=== PATIENT | female | born 1985 | race Caucasian/White ===

== ENCOUNTER 2016-09-02 17:08 | Inpatient (IN) | payer MEDICAID ==
[2016-09-02 17:10] VITALS: BMI 34.3
--- NOTE | 2016-09-02 18:30 | ED PDOC ---
Arrival/HPI <ElidiaCaio Kyle - Last Filed: 09/02/16 18:42> <RAQUEL SONG - Last Filed: 09/02/16 18:44> <Rigo Alberto - Last Filed: 09/02/16 21:16> - General Chief Complaint: GI Problem Time Seen by Provider: 09/02/16 17:08 - History of Present Illness Narrative History of Present Illness (Text): 09/02/16 18:22 Mrs. 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 She reports the pain is constant, burning/pressure sensation that is rated a 6-7 /10 with no radiation. She indicates that standing, bearing down and passing harder stool causes increased pain. She does indicate there is blood with bowel movements that is bright and red. She has tried to treat her pain with preparation H with out relieve. She denies any weakness, dizziness, shortness of breath, chest pain, palpitations. She does report intermittent nausea since onset. She denies being on any anti-coagulation at this time. (RAQUEL SONG) Past Medical History <ElidiaCaio Kyle - Last Filed: 09/02/16 18:42> - Provider Review Nursing Documentation Reviewed: Yes - Infectious Disease Hx of Infectious Diseases: None - Past Medical History Past Medical History: No Previous - Pulmonary Hx Asthma: Yes - Hematological/Oncological Hx Anemia: Yes - Psychiatric Hx Depression: No Hx Emotional Abuse: No Hx Physical Abuse: No Hx Substance Use: No - Surgical History Hx Section: Yes (x2) Other[facility]Comment[facility] Gastric sleeve - Anesthesia Hx Anesthesia: Yes Hx Anesthesia Reactions: No Hx Malignant Hyperthermia: No - Suicidal Assessment Feels Threatened In Home Enviroment: No <RAQUEL SONG - Last Filed: 09/02/16 18:44> <Rigo Alberto - Last Filed: 09/02/16 21:16> - Patient History Narrative Patient History: DVT PE Asthma Anemia - Iron deficiency (RAQUEL SONG) Family/Social History <Caio Brenner - Last Filed: 09/02/16 18:42> - Physician Review Nursing Documentation Reviewed: Yes Smoking Status: Never Smoked Hx Alcohol Use: Yes Hx Substance Use: No Hx Substance Use Treatment: No <RAQUEL SONG - Last Filed: 09/02/16 18:44> Family/Social History: No Known Family HX <Florencio Albertomary carmen Short - Last Filed: 09/02/16 21:16> Narrative Family History (Free Text): 09/02/16 18:31 Mother: Brain tumors, Epilepsy, DM2 Uncle: Colon Ca (RAQUEL SONG) Allergies/Home Meds <Caio Brenner - Last Filed: 09/02/16 18:42> <LIATMARTINBECKA HALLRAQUEL - Last Filed: 09/02/16 18:44> <DollyRigo L - Last Filed: 09/02/16 21:16> Allergies/Adverse Reactions: Allergies No Known Allergies Allergy (Verified 04/10/14 20:07) Home Medications: Home Meds Medication Instructions Recorded Confirmed Albuterol HFA [Ventolin HFA 90 2 puff IH QID PRN 09/02/16 09/02/16 mcg/actuation (8 g)] Cetirizine HCl [Zyrtec] 1 tab PO DAILY 09/02/16 09/02/16 Fluticasone/Salmeterol 500/50 1 puff IH DAILY 09/02/16 09/02/16 [Advair Diskus 500/50] Review of Systems - Review of Systems Constitutional: absent: Fatigue, Weight Change, Fevers Respiratory: absent: SOB, Cough Cardiovascular: absent: Chest Pain, Palpitations Gastrointestinal: Nausea. absent: Abdominal Pain, Stool Changes, Vomiting, Hematochezia Genitourinary Female: absent: Dysuria, Frequency Musculoskeletal: absent: Back Pain Neurological: absent: Headache, Dizziness Hemo/Lymphatic: absent: Easy Bleeding Psychiatric: absent: Anxiety, Depression <DUNCANRAQUEL - Last Filed: 09/02/16 18:44> Physical Exam Vital Signs Reviewed: Yes Temperature: Afebrile Blood Pressure: Normal Pulse: Tachycardic Respiratory Rate: Normal Appearance: Positive for: Well-Appearing Pain Distress: Moderate Mental Status: Positive for: Alert and Oriented X 3 - Systems Exam Head: Present: Atraumatic, Normocephalic Pupils: Present: PERRL Extroacular Muscles: Present: EOMI Mouth: Present: Moist Mucous Membranes Neck: Present: Normal Range of Motion Respiratory/Chest: Present: Clear to Auscultation, Good Air Exchange. No: Respiratory Distress, Accessory Muscle Use Cardiovascular: Present: Regular Rate and Rhythm, Normal S1, S2. No: Murmurs Abdomen: Present: Normal Bowel Sounds. No: Tenderness, Distention Rectal: Present: Rectal Tenderness, Normal Rectal Tone, Other (indurated mass at 12 o'clock, limited skin changes, ). No: Occult Blood, Gross Blood, Hemorrhoids, Fissures Upper Extremity: Present: Normal Inspection, NORMAL PULSES. No: Edema Lower Extremity: Present: Normal Inspection, NORMAL PULSES. No: CALF TENDERNESS Neurological: Present: GCS=15, CN II-XII Intact, Speech Normal Skin: Present: Warm, Dry Psychiatric: Present: Alert, Oriented x 3 <RAQUEL SONG - Last Filed: 09/02/16 18:44> Medical Decision Making <Caio Brenner - Last Filed: 09/02/16 18:42> <RAQUEL SONG - Last Filed: 09/02/16 18:44> <Rigo Alberto - Last Filed: 09/02/16 21:16> ED Course and Treatment: 09/02/16 18:44 Impression: Mrs. Trinidad is a 31 year old female who presents with rectal pain for the past week. Differential Diagnosis included but are not limited to: - perirectal abscess Plan: - Labs: CBC, CMP, PT, PTT, Type and Screen - Imaging: CT abdomen and pelvis with IV contrast - Surgical team consulted for I & D -- Reassess and disposition Progress Notes: - Surgical team examined the patient and plan for I&D in the morning (RAQUEL SONG) - Medication Orders Current Medication Orders: Sodium Chloride (Sodium Chloride 0.9%) 1,000 mls @ 125 mls/hr IV .Q8H [facility] Last Admin: 09/02/16 19:17 Dose: 125 mls/hr Ciprofloxacin (Cipro 400mg/200ml Dsw) 400 mg in 200 mls @ 133.3 mls/hr IVPB Q12 LAXMI PRN Reason: Protocol Stop: 09/03/16 11:31 Metronidazole (Flagyl) 500 mg in 100 mls @ 100 mls/hr IVPB Q8 LAXMI PRN Reason: Protocol Ketorolac Tromethamine (Toradol) 30 mg IVP Q6H PRN PRN Reason: Pain, moderate (4-7) Stop: 09/05/16 18:46 Last Admin: 09/02/16 19:26 Dose: 30 mg Re-Assess: ALEK Pain Assessment Document 09/02/16 20:26 OCS (Rec: 09/02/16 20:28 OCS [id number]) Pain Reassessment Is this a pain reassessment? Yes Sleep Is patient sleeping during reassessment? No Presence of Pain Presence of Pain No ED OBSERVATION Date of observation admission: 09/02/16 Time of observation admission: 17:53 <Caio Brenner - Last Filed: 09/02/16 18:42> <RAQUEL SONG - Last Filed: 09/02/16 18:44> <Rigo Alberto - Last Filed: 09/02/16 21:16> - Observation admission statement Patient is being placed in observation because:: perirectal abscess (Caio Brenner) - Goals of Observation Goals of observation are:: CT scan (Caio Brenner) - Progress Note Progress Note: [address] to evaluate for further involvement/fistula. 1830 residential mortgage underwriter at bedside, states likely OR tomorrow AM. Recommends admission to medicine. 1843 Pending labs, CT. When resulted, will require call to hospitalist service for admission. Will sign out to ER night team at change of shift. (Caio Brenner) 09/02/16 19:00 Patient endorsed to me by Dr. Brenner. Pending abdomen and pelvis CT, labs and disposition. Patient with rectal abscess. Evaluated by surgical technician, plan to admit to hospitalist. 09/02/16 20:54 Patient resting comfortably, in no acute distress. Pending CT. Report Date: 09/02/16 20:56 Dictated and Authenticated by: Ana Luisa Ambrose MD EXAM: CT Abdomen and Pelvis With Intravenous Contrast IMPRESSION: Left perirectal abscess; free fluid in the pelvis, physiologic versus recent cyst rupture; gastric sleeve 09/02/16 21:[address] Mantilla, medical assistant ob gyn, who will take the case. Case discussed with Dr. Li who will place on his service. I discussed the case with the surgical technician who states NPO past midnight and they will do a procedure in the morning. (Rigo Alberto) Disposition/Present on Arrival - Disposition Disposition Time: 17:53 <Caio Brenner - Last Filed: 09/02/16 18:42> - Present on Arrival Any Indicators Present on Arrival: Yes History of DVT/PE: Yes History of Uncontrolled Diabetes: No Urinary Catheter: No History of Decub. Ulcer: No History Surgical Site Infection Following: None <RAQUEL SONG - Last Filed: 09/02/16 18:44> - Present on Arrival Any Indicators Present on Arrival: No - Disposition Have Diagnosis and Disposition been Completed?: Yes Patient Plan: Observation <Rigo Alberto - Last Filed: 09/02/16 21:16> - Disposition Diagnosis: Rectal abscess Disposition: HOSPITALIZED Condition: FAIR
[2016-09-02 18:48] LABS: ALB/GLOB RATIO 1.4 (1.1-1.8); ALBUMIN 4.6 g/dL (3.0-4.8); ALT/SGPT 23 U/L (7-56); AST/SGOT 23 U/L (15-39); BLOOD UREA NITROGEN 11 mg/dL (7-21); CALCIUM 9.5 mg/dL (8.4-10.5); GFR AFRICAN-AMERICAN > 60; GFR NON-AFRICAN AMERICAN > 60
[2016-09-02 18:55] LABS: BASO # 0.03 K/mm3 (0.0-2.0); BASO % 0.3 % (0.0-3.0); EOS # 0.2 (0.0-0.7); GRAN # 7.22 (1.4-6.5); GRAN % 71.7 % (50.0-68.0); HEMOGLOBIN 12.9 gm/dL (12.0-16.0); INR 1.03 (0.93-1.08); LYMPH % 20.1 % (22.0-35.0); MEAN CELL VOLUME 82.6 fL (80.0-105.0); MEAN CORPUSCULAR HEMOGLOBIN 27.7 pg (25.0-35.0); MEAN CORPUSCULAR HGB CONC 33.6 g/dl (31.0-37.0); MEAN PLATELET VOLUME 10.8 fl (7.0-11.0); MONO # 0.6 (0.1-0.6); MONO % 5.9 % (1.0-6.0); PARTIAL THROMBOPLASTIN TIME 26.2 Seconds (23.7-30.8); PLATELET COUNT 280 10^3/uL (120.0-450.0); PROTHROMBIN TIME 11.1 Seconds (9.9-11.8); RBC 4.65 10^6/uL (3.5-6.1); WHITE BLOOD COUNT 10.1 10^3/ul (4.5-11.0)
--- NOTE | 2016-09-02 19:08 | CP.PCM.CON ---
History of Present Illness - History of Present Illness History of Present Illness: General Surgery - Dr. Guillen 31 yo F w/ hx of asthma, anemia, gastric sleeve, DVT/PE s/p IVC filter, who presents w/ ever-rectal pain x1 week. Pt states that the pain began approx. 1 week ago, she describes it as a burning pain located in the ever-rectal region, non-radiating, 7/10 at worst. She noticed it most when having a bowel movement or when sitting down. Pt states she also noticed a small tender bump in the region of pain, no drainage. She admits to mild nausea and hematochezia. She denies any Fevers, Chills, SOB/Chest pain, Abdominal pain, Diarrhea, Constipation, Dysuria, Hematuria. PMH: Asthma, Anemia, DVT/PE (2007) PSH: Gastric Sleeve (2013), IVC Filter (~2007), Meds: Asthma meds, B12, Iron NKDA No smoking/alcohol/drug use Pt was seen in the ED. Vitals are stable and WNL. Labs and CT pending. Review of Systems - Review of Systems All systems: reviewed and no additional remarkable complaints except (as per HPI ) Past Patient History - Infectious Disease Hx of Infectious Diseases: None - Past Social History Smoking Status: Never Smoked - PULMONARY Hx Asthma: Yes - HEMATOLOGICAL/ONCOLOGICAL Hx Anemia: Yes - PSYCHIATRIC Hx Depression: No Hx Emotional Abuse: No Hx Physical Abuse: No Hx Substance Use: No - SURGICAL HISTORY Hx Section: Yes (x2) Other[facility]Comment: [facility]. Gastric sleeve - ANESTHESIA Hx Anesthesia: Yes Hx Anesthesia Reactions: No Hx Malignant Hyperthermia: No Meds Allergies/Adverse Reactions: Allergies Allergy/AdvReac Type Severity Reaction Status Date / Time No Known Allergies Allergy Verified 04/10/14 20:07 - Medications Medications: Current Medications Sodium Chloride (Sodium Chloride 0.9%) 1,000 mls @ 125 mls/hr IV .Q8H LAXMI Ketorolac Tromethamine (Toradol) 30 mg IVP Q6H PRN PRN Reason: Pain, moderate (4-7) Stop: 09/05/16 18:46 Physical Exam - Constitutional Appears: No Acute Distress - Head Exam Head Exam: ATRAUMATIC, NORMAL INSPECTION, NORMOCEPHALIC - Eye Exam Eye Exam: EOMI, Normal appearance, PERRL Pupil Exam: NORMAL ACCOMODATION - ENT Exam ENT Exam: Mucous Membranes Moist - Respiratory Exam Respiratory Exam: NORMAL BREATHING PATTERN. absent: Respiratory Distress - Cardiovascular Exam Cardiovascular Exam: REGULAR RHYTHM - GI/Abdominal Exam GI & Abdominal Exam: Soft. absent: Distended, Tenderness - Rectal Exam Additional comments: Perianal abscess at the 12-o'clock position, erythema, mild induration and fluctuance, very tender to touch, no drainage, no hemorrhoids - Extremities Exam Extremities exam: Positive for: normal inspection. Negative for: pedal edema, tenderness - Neurological Exam Neurological exam: Alert, Oriented x3 - Psychiatric Exam Psychiatric exam: Normal Affect, Normal Mood - Skin Skin Exam: Dry, Intact Results - Vital Signs Recent Vital Signs: Last Vital Signs Temp 98.1 F 09/02/16 17:12 Pulse 109 H 09/02/16 17:12 Resp 18 09/02/16 17:12 BP 127/67 09/02/16 17:12 Pulse Ox 98 09/02/16 17:12 - Labs Result Diagrams: 09/02/16 18:25 09/02/16 18:25 Labs: Laboratory Results - last 24 hr 09/02/16 09/02/16 09/02/16 18:25 18:25 18:25 WBC 10.1 RBC 4.65 Hgb 12.9 Hct 38.4 MCV 82.6 MCH 27.7 MCHC 33.6 RDW 12.0 Plt Count 280 MPV 10.8 Gran % 71.7 H Lymph % (Auto) 20.1 L [place] % (Auto) 5.9 Eos % (Auto) 2.0 Baso % (Auto) 0.3 Gran # 7.22 H Lymph # 2.0 [place] # 0.6 Eos # 0.2 Baso # 0.03 PT 11.1 INR 1.03 APTT 26.2 Sodium 137 Potassium 4.1 Chloride 103 Carbon Dioxide 24 Anion Gap 14 BUN 11 Creatinine 0.7 Est GFR ( Amer) > 60 Est GFR (Non-Af Amer) > 60 Random Glucose 89 Calcium 9.5 Total Bilirubin 0.9 AST 23 ALT 23 Alkaline Phosphatase 49 Total Protein 8.0 Albumin 4.6 Globulin 3.4 Albumin/Globulin Ratio 1.4 BBK History Checked 09/02/16 18:30 WBC RBC Hgb Hct MCV MCH MCHC RDW Plt Count MPV Gran % Lymph % (Auto) [place] % (Auto) Eos % (Auto) Baso % (Auto) Gran # Lymph # [place] # Eos # Baso # PT INR APTT Sodium Potassium Chloride Carbon Dioxide Anion Gap BUN Creatinine Est GFR ( Amer) Est GFR (Non-Af Amer) Random Glucose Calcium Total Bilirubin AST ALT Alkaline Phosphatase Total Protein Albumin Globulin Albumin/Globulin Ratio BBK History Checked Patient has bt Assessment & Plan - Assessment and Plan (Free Text) Assessment: 31 yo F w/ perianal abscess -Admit to hospital -NPO/IVF -Pain control prn -IV Abx -F/U CT abd/pelvis -I&D in OR tomorrow (09/03) DW Dr Wilmer Barrera PGY3
[2016-09-02] MEDS: Sodium Chloride 0.9% 1,000 ML IV SCH (19:17)
--- NOTE | 2016-09-02 19:25 | ED PDOC ---
Physical Exam Vital Signs Temp Pulse Resp BP Pulse Ox 09/02/16 17:12 98.1 F 109 H 18 127/67 98 Medical Decision Making - Medication Orders Current Medication Orders: Sodium Chloride (Sodium Chloride 0.9%) 1,000 mls @ 125 mls/hr IV .Q8H LAXMI Last Admin: 09/02/16 19:17 Dose: 125 mls/hr Ciprofloxacin (Cipro 400mg/200ml Dsw) 400 mg in 200 mls @ 133.3 mls/hr IVPB Q12 LAXMI PRN Reason: Protocol Stop: 09/03/16 11:31 Metronidazole (Flagyl) 500 mg in 100 mls @ 100 mls/hr IVPB Q8 LAXMI PRN Reason: Protocol Ketorolac Tromethamine (Toradol) 30 mg IVP Q6H PRN PRN Reason: Pain, moderate (4-7) Stop: 09/05/16 18:46 Disposition/Present on Arrival - Present on Arrival Any Indicators Present on Arrival: Yes History of DVT/PE: Yes History of Uncontrolled Diabetes: No Urinary Catheter: No History of Decub. Ulcer: No History Surgical Site Infection Following: None - Disposition
[2016-09-02] MEDS ORDERED: Iohexol 350 MG/100 ML VIAL ONE (19:34)
[2016-09-02 20:06] VITALS: O2SAT 100
--- NOTE | 2016-09-02 20:56 | CT ---
EXAM: CT Abdomen and Pelvis With Intravenous Contrast CLINICAL HISTORY: 31 years old, female; Pain; Abdominal pain; Additional info: Ana-rectal pain TECHNIQUE: Axial computed tomography images of the abdomen and pelvis with intravenous contrast. This CT exam was performed using one or more of the following dose reduction techniques: automated exposure control, adjustment of the mA and/or kV according to patient size, and/or use of iterative reconstruction technique. Coronal and sagittal reformatted images were created and reviewed. CONTRAST: 100 mL of [id number] administered intravenously. EXAM DATE/TIME: 09/02/2016 5:53 PM COMPARISON: There are no prior studies for comparison. FINDINGS: Lower thorax: Heart size is normal. There is minimal scarring at the lung bases ABDOMEN: Liver: unremarkable Gallbladder and bile ducts: unremarkable Pancreas: unremarkable Spleen: unremarkable Adrenals: unremarkable Kidneys and ureters: unremarkable Stomach and bowel: There are postsurgical changes of gastric sleeve. Rotation is normal. Small bowel is mildly distended with air and fluid. There is no obstruction. Terminal ileum is unremarkable. Visualized portion of the appendix is unremarkable.Colon is incompletely distended which limits evaluation. There is inflammation and edema in perirectal soft tissues. There is a 20 x 7.8 x 9.7 mm left perirectal abscess. Appendix: See stomach and bowel PELVIS: Bladder: unremarkable Reproductive: Uterus and left adnexa are unremarkable. There is prominence of the right adnexa with a corpus luteum. ABDOMEN and PELVIS: Intraperitoneal space: There is free fluid in the cul-de-sac. There is no free air Bones/joints: There are degenerative changes in the osseus structures. Soft tissues: There is a small fat containing umbilical hernia. Vasculature: Aorta is unremarkable. There is an IVC filter. Lymph nodes: There is no pathologic adenopathy. IMPRESSION: Left perirectal abscess; free fluid in the pelvis, physiologic versus recent cyst rupture; gastric sleeve Additional findings as described above.
--- NOTE | 2016-09-02 21:51 | CP.PCM.HP ---
<JEREMIE GOYAL - Last Filed: 09/03/16 00:11> History of Present Illness - History of Present Illness History of Present Illness: 31 year old female pmh asthma, DVT, PE, Anemia presents to [facility] on 09/02/2016 with complaints of a pressure sensation in her buttocks as well as bleeding s/p bowel movements. This is the first time patient has experienced this. Patient states that this has been going for a week with severity of pain worsening with time. She notes that aside from bleeding with wiping, in the past two days she has also experienced purulent drainage. Initially thinking she had hemorrhoids, patient was using preparation H to no avail. Patient describes the pain as both sharp and dull waxing and waning. She states that the pain is about a 7/10. The pain does not radiate, however is exacerbated with standing and valsalva maneuvers. Patient states that to relieve pain she lays down. She admits to recent bouts of nausea and loss of appetite. Patient denies fevers, chills, vomiting, chest pain, history of GI disorders, sexual promiscuity. PMD: Dr. Gregorio PMH: Asthma, DVT, PE, Anemia (Iron deficiency and B12) PSH: 2 C-sections, IVC filter placement SH: denies tobacco use, admits to occasional alcohol consumption, denies illicit drug use FH: Mother: brain tumors and DM II, 2 maternal aunts: breast ca, maternal uncle : colon cancer Allergies: NKDA Review of Systems Constitutional: pt denies fever, chills, generalized weakness MSK: pt denies muscle stiffness, joint pain, extremity cramping Cardio: pt denies sob, heart murmur; chest pain Pulm: pt denies cough, shortness of breath GI: pt denies abdominal pain, constipation, melena, vomiting, diarrhea, admits to nausea, admits to loss of appetite : pt denies burning on urination, urinary frequency, hematuria, urinary urgency Derm: pt admits to drainage and bleeding from anal region Neuro: pt denies paresis, paresthesia, dizziness, cross, numbness, tingling Endo: pt denies intolerance to heat/cold, diaphoresis, night sweats, polydipsia Physical Exam Constitutional: obese female, a&o x 4, nad Head and Neck: neck supple, no jvd, trachea midline, carotid midline, no cervical/head mass Eyes: angeli, nonicteric sclera, eom intact ENT: auditory acuity grossly intact, throat not congested, no nasal deformity Cardio: RRR, S1 and S2 present, no gallops, no murmurs Pulm: CTAB, no accessory muscle use, equal nml breath sounds bilaterally Abd: s/nt/nd, nbs x 4 q, no palpable masses Derm: +perirectal abscess,- current drainage Extr: no edema, no cyanosis, no calf tenderness, no lesions, no varicosities Present on Admission - Present on Admission Any Indicators Present on Admission: Yes History of DVT/PE: Yes History of Uncontrolled Diabetes: No Past Patient History - Infectious Disease Hx of Infectious Diseases: None - Past Social History Smoking Status: Never Smoked - PULMONARY Hx Asthma: Yes - HEMATOLOGICAL/ONCOLOGICAL Hx Anemia: Yes - PSYCHIATRIC Hx Depression: No Hx Emotional Abuse: No Hx Physical Abuse: No Hx Substance Use: No - SURGICAL HISTORY Hx Section: Yes (x2) Other[facility]Comment[facility] Gastric sleeve - ANESTHESIA Hx Anesthesia: Yes Hx Anesthesia Reactions: No Hx Malignant Hyperthermia: No Meds Allergies/Adverse Reactions: Allergies Allergy/AdvReac Type Severity Reaction Status Date / Time No Known Allergies Allergy Verified 04/10/14 20:07 Results - Vital Signs Recent Vital Signs: Last Vital Signs Temp 98.1 F 09/02/16 17:12 Pulse 85 09/02/16 19:58 Resp 18 09/02/16 19:58 BP 135/81 09/02/16 19:58 Pulse Ox 100 09/02/16 19:58 - Labs Result Diagrams: 09/02/16 18:25 09/02/16 18:25 Labs: Laboratory Results - last 24 hr 09/02/16 09/02/16 09/02/16 18:25 18:25 18:25 WBC 10.1 RBC 4.65 Hgb 12.9 Hct 38.4 MCV 82.6 MCH 27.7 MCHC 33.6 RDW 12.0 Plt Count 280 MPV 10.8 Gran % 71.7 H Lymph % (Auto) 20.1 L [place] % (Auto) 5.9 Eos % (Auto) 2.0 Baso % (Auto) 0.3 Gran # 7.22 H Lymph # 2.0 [place] # 0.6 Eos # 0.2 Baso # 0.03 PT 11.1 INR 1.03 APTT 26.2 Sodium 137 Potassium 4.1 Chloride 103 Carbon Dioxide 24 Anion Gap 14 BUN 11 Creatinine 0.7 Est GFR ( Amer) > 60 Est GFR (Non-Af Amer) > 60 Random Glucose 89 Calcium 9.5 Total Bilirubin 0.9 AST 23 ALT 23 Alkaline Phosphatase 49 Total Protein 8.0 Albumin 4.6 Globulin 3.4 Albumin/Globulin Ratio 1.4 Blood Type Antibody Screen BBK History Checked 09/02/16 18:30 WBC RBC Hgb Hct MCV MCH MCHC RDW Plt Count MPV Gran % Lymph % (Auto) [place] % (Auto) Eos % (Auto) Baso % (Auto) Gran # Lymph # [place] # Eos # Baso # PT INR APTT Sodium Potassium Chloride Carbon Dioxide Anion Gap BUN Creatinine Est GFR ( Amer) Est GFR (Non-Af Amer) Random Glucose Calcium Total Bilirubin AST ALT Alkaline Phosphatase Total Protein Albumin Globulin Albumin/Globulin Ratio Blood Type A POSITIVE Antibody Screen Negative BBK History Checked Patient has bt Assessment & Plan - Assessment and Plan (Free Text) Assessment: 31 year old female PMH Asthma, DVT/PE s/p IVC filter, Anemia presented to [facility] on 09/02/2016 with an ischiorectal abscess for one week's duration. Plan: 1.Perirectal abscess -CT abdomen/pelvis shows perirectal abscess -Surgery will I&D tomorrow -Patient will remain NPO/IVF -Continue with Abx: cipro and metronidazole -Continue with toradol for pain coverage and percocet for breakthrough pain -Continue with Zofran 4 mg for nausea 2.Asthma -Duonebs PRN -DVT/GI prophylaxis- Lovenox 40 gm qD/Pepcid 20 mg qD <Guillermo,Tyrell Q - Last Filed: 09/03/16 02:00> Results - Vital Signs Recent Vital Signs: Last Vital Signs Temp 98.1 F 09/03/16 00:15 Pulse 85 09/03/16 00:15 Resp 20 09/03/16 00:15 BP 110/63 09/03/16 00:15 Pulse Ox 100 09/02/16 22:53 - Labs Result Diagrams: 09/02/16 18:25 09/02/16 18:25 Labs: Laboratory Results - last 24 hr 09/02/16 09/02/1609/02/17 18:25 18:25 18:25 WBC 10.1 RBC 4.65 Hgb 12.9 Hct 38.4 MCV 82.6 MCH 27.7 MCHC 33.6 RDW 12.0 Plt Count 280 MPV 10.8 Gran % 71.7 H Lymph % (Auto) 20.1 L [place] % (Auto) 5.9 Eos % (Auto) 2.0 Baso % (Auto) 0.3 Gran # 7.22 H Lymph # 2.0 [place] # 0.6 Eos # 0.2 Baso # 0.03 PT 11.1 INR 1.03 APTT 26.2 Sodium 137 Potassium 4.1 Chloride 103 Carbon Dioxide 24 Anion Gap 14 BUN 11 Creatinine 0.7 Est GFR ( Amer) > 60 Est GFR (Non-Af Amer) > 60 Random Glucose 89 Calcium 9.5 Total Bilirubin 0.9 AST 23 ALT 23 Alkaline Phosphatase 49 Total Protein 8.0 Albumin 4.6 Globulin 3.4 Albumin/Globulin Ratio 1.4 Blood Type Antibody Screen BBK History Checked 09/02/16 18:30 WBC RBC Hgb Hct MCV MCH MCHC RDW Plt Count MPV Gran % Lymph % (Auto) [place] % (Auto) Eos % (Auto) Baso % (Auto) Gran # Lymph # [place] # Eos # Baso # PT INR APTT Sodium Potassium Chloride Carbon Dioxide Anion Gap BUN Creatinine Est GFR ( Amer) Est GFR (Non-Af Amer) Random Glucose Calcium Total Bilirubin AST ALT Alkaline Phosphatase Total Protein Albumin Globulin Albumin/Globulin Ratio Blood Type A POSITIVE Antibody Screen Negative BBK History Checked Patient has bt Attending/Attestation - Attestation I have personally seen and examined this patient.: Yes I have fully participated in the care of the patient.: Yes I have reviewed all pertinent clinical information: Yes Notes (Text): 09/03/16 01:58 I agree with the above note by Dr. Goyal with the addition of the following: Patient has had a history of DVT/PE in 2007 and was provoked secondary to oral contraceptives. She was on anticoagulation for a prescribed period, had an IVC filter placed and subsequently taken off of anticoagulation. She will be kept on pharmacologic VTE prophylaxis while she remains in the hospital.
[2016-09-02] MEDS: metroNIDAZOLE IV 500 mg/100 ml 500 MG/100 ML BAG IVPB SCH (22:54)
[2016-09-02] MEDS: Oxycodone/Acetaminophen 5/325 mg Tab PO PRN (23:01)
[2016-09-02] MEDS: Ciprofloxacin 400mg/200ml D5W 400 MG/200 ML BAG IVPB SCH (23:48)
[2016-09-03] MEDS ORDERED: Albuterol-Ipratrop 3 mg / 0.5 (3 ml) UD IH PRN (00:04)
[2016-09-03] MEDS ORDERED: Pneumococcal 23-Valent Vaccine IM ONE (00:20)
[2016-09-03] MEDS: Enoxaparin 40 mg Syringe SC SCH ×2 (00:38→09:31)
[2016-09-03] MEDS: metroNIDAZOLE IV 500 mg/100 ml 500 MG/100 ML BAG IVPB SCH ×3 (05:55→22:30)
--- NOTE | 2016-09-03 09:22 | CARD ---
APPROVED REPORT EKG Measurement Heart [id number] <Conclusion> Normal sinus rhythm with sinus arrhythmia Normal ECG
[2016-09-03] MEDS: Ciprofloxacin 400mg/200ml D5W 400 MG/200 ML BAG IVPB SCH (09:31)
[2016-09-03] MEDS ORDERED: Bupivacaine 0.5% Inj(30mL) ONE (12:49)
[2016-09-03] MEDS ORDERED: Lidocaine 1% Inj (20ml) ONE (12:49)
[2016-09-03] MEDS ORDERED: Midazolam 2 MG/2 ML VIAL ONE (12:58)
[2016-09-03] MEDS ORDERED: Lidocaine 2% Inj (20ml) ONE (13:02)
[2016-09-03] MEDS ORDERED: Propofol 10 mg/ml Inj (20 ML) ONE (13:02)
[2016-09-03] MEDS ORDERED: ePHEDrine 50 mg/ml Inj ONE (13:12)
--- NOTE | 2016-09-03 13:41 | PCM.SURG1 ---
Surgeon's Initial Post Op Note - Surgeon's Notes Surgeon: Dr. Guillen Mesh Cutter: Dr. Dodson PGY2, Dr. Stanley PGY1 Type of Anesthesia: General Mask, Local Pre-Operative Diagnosis: Perianal abscess Operative Findings: perianal abcscess, fistula at 6o'clock Post-Operative Diagnosis: same Operation Performed: Incsion and Drainage of perianal abcsess and iodiform packing. anoscopy Specimen/Specimens Removed: none Estimated Blood Loss: EBL {In ML}: 3 Post-Op Condition: Good Date of Surgery/Procedure: 09/03/16 Time of Surgery/Procedure: 13:00
[2016-09-03] MEDS ORDERED: Lactated Ringer's 1,000 ML IV SCH (13:51)
[2016-09-03] MEDS ORDERED: HYDROmorphone 0.5 mg/0.5 ml ISec IVP PRN (13:51)
[2016-09-03] MEDS ORDERED: HYDROmorphone 0.5 mg/0.5 ml ISec ONE (14:03)
[2016-09-03] MEDS ORDERED: HYDROmorphone 0.5 mg/0.5 ml ISec IVP ONE (14:06)
[2016-09-03] MEDS: Oxycodone/Acetaminophen 5/325 mg Tab PO PRN (15:50)
[2016-09-03] MEDS: Vancomycin 1gm in NS 250ml 1 GM/250 ML BAG IVPB SCH (17:19)
[2016-09-03] MEDS: Sodium Chloride 0.9% 1,000 ML IV SCH (21:00)
[2016-09-04] MEDS: HYDROmorphone 0.5 mg/0.5 ml ISec IVP PRN ×2 (00:30→05:57)
[2016-09-04] MEDS: Vancomycin 1gm in NS 250ml 1 GM/250 ML BAG IVPB SCH (03:42)
[2016-09-04] MEDS: metroNIDAZOLE IV 500 mg/100 ml 500 MG/100 ML BAG IVPB SCH (05:57)
[2016-09-04] MEDS ORDERED: Oxycodone/Acetaminophen 5/325 mg Tab PO PRN (07:38)
[2016-09-04 07:45] LABS: BASO # 0.01 K/mm3 (0.0-2.0); BASO % 0.1 % (0.0-3.0); EOS % 0.2 % (1.5-5.0); GRAN # 11.07 (1.4-6.5); GRAN % 91.9 % (50.0-68.0); HEMOGLOBIN 10.8 gm/dL (12.0-16.0); LYMPH # 0.4 (1.2-3.4); LYMPH % 3.2 % (22.0-35.0); MEAN CELL VOLUME 83.5 fL (80.0-105.0); MEAN CORPUSCULAR HEMOGLOBIN 27.8 pg (25.0-35.0); MEAN CORPUSCULAR HGB CONC 33.2 g/dl (31.0-37.0); MEAN PLATELET VOLUME 10.6 fl (7.0-11.0); MONO # 0.6 (0.1-0.6); MONO % 4.6 % (1.0-6.0); PLATELET COUNT 156 10^3/uL (120.0-450.0); RBC 3.89 10^6/uL (3.5-6.1); RED CELL DISTRIBUTION WIDTH 12.1 % (11.5-14.5); WHITE BLOOD COUNT 12.1 10^3/ul (4.5-11.0)
[2016-09-04 07:56] LABS: ALB/GLOB RATIO 1.1 (1.1-1.8); ALBUMIN 3.3 g/dL (3.0-4.8); ALT/SGPT 20 U/L (7-56); AST/SGOT 23 U/L (15-39); BLOOD UREA NITROGEN 6 mg/dL (7-21); CALCIUM 7.7 mg/dL (8.4-10.5); GFR AFRICAN-AMERICAN > 60; GFR NON-AFRICAN AMERICAN > 60
--- NOTE | 2016-09-04 10:33 | CP.PCM.PN ---
Subjective - Date & Time of Evaluation Date of Evaluation: 09/04/16 Time of Evaluation: 10:30 - Subjective Subjective: PT S&E at bedsides. wound culture taken. packing removed. Dressing changed. Patient admits to nausea with pain medication. Patient is tolerating her diet. Patient denies F/c, N/V, C/D Objective - Vital Signs/Intake and Output Vital Signs (last 24 hours): Temp Pulse Resp BP Pulse Ox 99.8 F H 93 H 20 110/63 100 09/04/16 07:53 09/04/16 07:53 09/04/16 07:53 09/04/16 07:53 09/04/16 07:53 Intake and Output: 09/04/16 09/04/16 06:59 18:59 Intake Total 780 240 Output Total 0 Balance 780 240 - Medications Medications: Current Medications Albuterol/Ipratropium (Duoneb 3 Mg/0.5 Mg (3 Ml) Ud) 3 ml IH Q8H PRN PRN Reason: Wheezing Docusate Sodium (Colace) 100 mg PO BID LAXMI Last Admin: 09/04/16 09:34 Dose: 100 mg Metronidazole (Flagyl) 500 mg in 100 mls @ 100 mls/hr IVPB Q8 LAXMI PRN Reason: Protocol Last Admin: 09/04/16 05:57 Dose: 100 mls/hr Vancomycin HCl (Vancomycin 1gm) 1 gm in 250 mls @ 167 mls/hr IVPB Q12H LAXMI PRN Reason: Protocol Last Admin: 09/04/16 03:42 Dose: 167 mls/hr Ketorolac Tromethamine (Toradol) 30 mg IVP Q6H PRN PRN Reason: Pain, moderate (4-7) Stop: 09/04/16 18:46 Last Admin: 09/04/16 08:39 Dose: 30 mg Ondansetron HCl (Zofran Inj) 4 mg IVP Q4H PRN PRN Reason: Nausea/Vomiting Last Admin: 09/03/16 20:59 Dose: 4 mg Oxycodone/Acetaminophen (Percocet 5/325 Mg Tab) 1 tab PO Q4 PRN PRN Reason: Pain, severe (8-10) Stop: 09/07/16 08:01 - Labs Labs: 09/04/16 07:00 09/04/16 07:00 PT 11.1 Seconds (9.9-11.8) 09/02/16 18:25 INR 1.03 (0.93-1.08) 09/02/16 18:25 APTT 26.2 Seconds (23.7-30.8) 09/02/16 18:25 - Constitutional Appears: Well - Head Exam Head Exam: NORMAL INSPECTION - Eye Exam Eye Exam: EOMI, Normal appearance - ENT Exam ENT Exam: Mucous Membranes Moist - Neck Exam Neck Exam: Full ROM, Normal Inspection - Cardiovascular Exam Cardiovascular Exam: REGULAR RHYTHM - GI/Abdominal Exam GI & Abdominal Exam: Soft, Tenderness, Normal Bowel Sounds. absent: Distended, Firm, Guarding, Rigid - Neurological Exam Neurological Exam: Alert, Awake, Normal Gait, Oriented x3 Assessment and Plan - Assessment and Plan (Free Text) Assessment: 31 F perianal abscess s/p I&D POD #1 Plan: Patient is stable, discharge today with instructions to continue sitz baths f/u one with Dr. Guillen c/w abx f/u wound cx
[2016-09-04 11:53] VITALS: BP 110/63; PULSE 93; RESP 20; TEMP 99.8
--- NOTE | 2016-09-04 23:09 | CP.PCM.DIS ---
Provider - Provider Date of Admission: 09/03/16 13:54 Attending physician: Darcy Stewart MD Primary care physician: Mar Gregorio DO Consults: Surgery: Dr. Guillen Time Spent in preparation of Discharge (in minutes): 51 Hospital Course - Lab Results Lab Results: Micro Results 09/04/16 08:22 Abscess - Perianal Gram Stain - Final Most Recent Lab Values WBC 12.1 10^3/ul (4.5-11.0) H 09/04/16 07:00 RBC 3.89 10^6/uL (3.5-6.1) 09/04/16 07:00 Hgb 10.8 gm/dL (12.0-16.0) L 09/04/16 07:00 Hct 32.5 % (36.0-48.0) L 09/04/16 07:00 MCV 83.5 fL (80.0-105.0) 09/04/16 07:00 MCH 27.8 pg (25.0-35.0) 09/04/16 07:00 MCHC 33.2 g/dl (31.0-37.0) 09/04/16 07:00 RDW 12.1 % (11.5-14.5) 09/04/16 07:00 Plt Count 156 10^3/uL (120.0-450.0) 09/04/16 07:00 MPV 10.6 fl (7.0-11.0) 09/04/16 07:00 Gran % 91.9 % (50.0-68.0) H 09/04/16 07:00 Lymph % (Auto) 3.2 % (22.0-35.0) L 09/04/16 07:00 Saline % (Auto) 4.6 % (1.0-6.0) 09/04/16 07:00 Eos % (Auto) 0.2 % (1.5-5.0) L 09/04/16 07:00 Baso % (Auto) 0.1 % (0.0-3.0) 09/04/16 07:00 Gran # 11.07 (1.4-6.5) H 09/04/16 07:00 Lymph # 0.4 (1.2-3.4) L 09/04/16 07:00 Saline # 0.6 (0.1-0.6) 09/04/16 07:00 Eos # 0.0 (0.0-0.7) 09/04/16 07:00 Baso # 0.01 K/mm3 (0.0-2.0) 09/04/16 07:00 PT 11.1 Seconds (9.9-11.8) 09/02/16 18:25 INR 1.03 (0.93-1.08) 09/02/16 18:25 APTT 26.2 Seconds (23.7-30.8) 09/02/16 18:25 Sodium 135 mmol/L (132-148) 09/04/16 07:00 Potassium 4.1 mmol/L (3.6-5.0) 09/04/16 07:00 Chloride 105 mmol/L (95-110) 09/04/16 07:00 Carbon Dioxide 19 mmol/L (21-33) L 09/04/16 07:00 Anion Gap 15 (10-20) 09/04/16 07:00 BUN 6 mg/dL (7-21) L 09/04/16 07:00 Creatinine 0.7 mg/dL (0.5-1.4) 09/04/16 07:00 Est GFR ( Amer) > 60 09/04/16 07:00 Est GFR (Non-Af Amer) > 60 09/04/16 07:00 Random Glucose 85 mg/dL (70-110) 09/04/16 07:00 Calcium 7.7 mg/dL (8.4-10.5) L 09/04/16 07:00 Total Bilirubin 0.7 mg/dL (0.2-1.3) 09/04/16 07:00 AST 23 U/L (15-39) 09/04/16 07:00 ALT 20 U/L (7-56) 09/04/16 07:00 Alkaline Phosphatase 65 U/L (38-133) 09/04/16 07:00 Total Protein 6.3 g/dL (5.8-8.3) 09/04/16 07:00 Albumin 3.3 g/dL (3.0-4.8) 09/04/16 07:00 Globulin 3.0 gm/dL 09/04/16 07:00 Albumin/Globulin Ratio 1.1 (1.1-1.8) 09/04/16 07:00 Blood Type A POSITIVE 09/02/16 18:30 Antibody Screen Negative 09/02/16 18:30 BBK History Checked Patient has bt 09/02/16 18:30 - Hospital Course Hospital Course: 31 year old female with a PMH of asthma, DVT, PE, and anemia presented [place] [facility] [place] 09[place]02/2016 with complaints of a pressure sensation in her buttocks as well as bleeding s/p bowel movements. A CT of her abdomen and pelvis showed a perirectal abcess. Surgery was consulted and performed an I&D of the abscess on 09/03. Patient was started on ciprofloxacin and flagyl for empiric coverage. Surgery was performed with no complications but it was noted that a fistula was found during the procedure. After patient was hemodynamically stable for 24 hours after her procedure, patient was discharged home with PO antibiotics as mentioned above for 7 days. Given history of IVC filter and the fistula found during her procedure, upon discharge it was recommended that she seek consultation from a vascular surgeon for possible IVC removal and a bottle gauger for a colonoscopy. - Date & Time of H&P Date of H&P: 09/03/16 Time of H&P: 00:11 Discharge Exam - Head Exam Head Exam: NORMAL INSPECTION - Eye Exam Eye Exam: EOMI, Normal appearance - ENT Exam ENT Exam: Mucous Membranes Moist, Normal Exam - Neck Exam Neck exam: Full Rom - Respiratory Exam Respiratory Exam: NORMAL BREATHING PATTERN, UNREMARKABLE. absent: Rales, Rhonchi, Wheezes, Respiratory Distress - Cardiovascular Exam Cardiovascular Exam: REGULAR RHYTHM, RRR, +S1, +S2 - GI/Abdominal Exam GI & Abdominal Exam: Normal Bowel Sounds, Unremarkable - Rectal Exam Additional comments: Wound dressing clean dry and intact - Extremities Exam Additional comments: no calf tenderness or pedal edema - Neurological Exam Neurological exam: Alert, Normal Gait, Oriented x3 - Psychiatric Exam Psychiatric exam: Normal Affect, Normal Mood - Skin Skin Exam: Dry, Intact, Normal Color, Warm Discharge Plan - Discharge Medications Prescriptions: Ciprofloxacin [Cipro] 500 mg PO BID #14 tab Docusate [Colace] 100 mg PO BID #30 cap metroNIDAZOLE [Flagyl] 500 mg PO TID #21 tab Ondansetron HCl [Zofran] 4 mg PO PRN PRN #20 tablet PRN Reason: Nausea/Vomiting oxyCODONE/Acetaminophen [Percocet 5/325 mg Tab] 1 tab PO PRN PRN #10 tab PRN Reason: Pain, Severe (8-10) - Follow Up Plan Condition: FAIR Disposition: HOME/ ROUTINE Instructions: Sitz Bath (DC), Rectal Abscess (DC), Rectal Abscess (GEN) Additional Instructions: 1. If your symptoms persist or worsen, please seek emergency medical attention. 2. Please follow up with your surgeon, Dr. Guillen, for post surgery follow up within 7 days. Follow any wound care instructions that the surgery team has provided you during your hospital stay. 3. Please follow up with your PMD, Dr. Gregorio, for post hospital follow up within 7 days. Also, please discuss with her that we recommend a consultation with a vascular surgeon regarding your previously placed IVC filter as well as a GI consult for a colonoscopy to further work up fistula found by surgical team during your surgical procedure. 4. Please take medications as prescribed. All new medications will be sent to the [facility] at their location on [address] in [place], [place]. 5. Patient can return to work and perform duties as tolerated. 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 Referrals: Mar Gregorio DO [Primary Care Provider] - Harshad Guillen MD [Staff Provider] -
--- NOTE | 2016-09-13 08:10 | OP ---
PROCEDURE DATE: 09/03/2016 PREOPERATIVE DIAGNOSIS: Abscess in the perianal area. POSTOPERATIVE DIAGNOSIS: Abscess in the perianal area. OPERATION PERFORMED: Incision and drainage. SURGEON: Harshad Guillen MD DESCRIPTION OF PROCEDURE: In the operating room the patient identified by name and procedure, laterality placed in the lithotomy position. The area was prepped and draped. There was a small area of abscess about 2 cm, which was infiltrated with 1% Xylocaine aspirated and opened. It was cleaned and explored. It went in towards the anus but was not through. This is probably a fistula, but I was not sure. I was unable to come and find the puncta in the perirectal area. There was a papillae that was somewhat swollen there. The area was cleaned, dried and opened. It was packed and cultured. The patient taken to recovery room in good condition. Instrument count was *------*correct. Harshad Guillen MD
== END 2016-09-04 14:43 | disposition home or self-care (01) | DRG 189 ==
LOC: ED 17:08 → EROBSV 17:53 → ERH 21:16 → 3RNO 23:32 → OBSVTOIN 09-03 13:54 → INTOOBSV 09-03 14:30 → OBSVTOIN 09-03 14:30
PROVIDERS: ADMIT Hospitalist; ATTEND Internal Medicine
PROC: 0D9Q0ZX Drainage of Anus, Open Approach, Diagnostic (ICD-10-PCS; principal; 2016-09-03 11:45)
DX: K61.1 Rectal abscess (principal); D51.9 Vitamin B12 deficiency anemia, unspecified; K60.4 Rectal fistula; D50.9 Iron deficiency anemia, unspecified; J45.909 Unspecified asthma, uncomplicated; Z86.718 Personal history of other venous thrombosis and embolism; Z98.84 Bariatric surgery status; Z86.711 Personal history of pulmonary embolism

== ENCOUNTER 2016-09-20 15:59 | Observation (INO) | payer MEDICAID ==
[2016-09-20 15:59] VITALS: BMI 34.3
[2016-09-20 16:22] VITALS: O2SAT 99
--- NOTE | 2016-09-20 16:40 | ED PDOC ---
Arrival/HPI - General Chief Complaint: Upper Extremity Problem/Injury Time Seen by Provider: 09/20/16 16:31 Historian: Patient - History of Present Illness Narrative History of Present Illness (Text): 09/20/16 16:38 This 31 yo female with pmh PE, presents to this ED c/o right arm pain x 2 -3 weeks. Patient stated she was admitted in this hospital for 2 days x 3 weeks ago. Patient was recommended to come to ED to have ultrasound done for blood clots. Denies sob, cp, or rash. Time/Duration: Other (3 weeks) Symptom Course: Unchanged Context: Home Past Medical History - Provider Review Nursing Documentation Reviewed: Yes - Infectious Disease Hx of Infectious Diseases: None - Past Medical History Past Medical History: No Previous - Pulmonary Hx Asthma: Yes - Hematological/Oncological Hx Anemia: Yes - Musculoskeletal/Rheumatological Hx Falls: No - Gastrointestinal Other/Comment: Colonoscopy 08/2016 - Psychiatric Hx Depression: No Hx Emotional Abuse: No Hx Physical Abuse: No Hx Substance Use: No - Surgical History Other/Comment: Sur[employer] FILTER. Gastric sleeve - Anesthesia Hx Anesthesia Reactions: No Hx Malignant Hyperthermia: No - Suicidal Assessment Feels Threatened In Home Enviroment: No Family/Social History - Physician Review Nursing Documentation Reviewed: Yes Family/Social History: No Known Family HX Smoking Status: Never Smoked Hx Alcohol Use: Yes Hx Substance Use: No Hx Substance Use Treatment: No Allergies/Home Meds Allergies/Adverse Reactions: Allergies No Known Allergies Allergy (Verified 04/10/14 20:07) Home Medications: Home Meds Medication Instructions Recorded Confirmed Albuterol HFA [Ventolin HFA 90 2 puff IH QID PRN 09/02/16 09/20/16 mcg/actuation (8 g)] Cetirizine HCl [Zyrtec] 1 tab PO DAILY 09/02/16 09/20/16 Fluticasone/Salmeterol 500/50 1 puff IH DAILY 09/20/16 09/20/16 [Advair Diskus 500/50] Review of Systems - Review of Systems Constitutional: Normal. absent: Fatigue, Weight Change Eyes: Normal ENT: Normal Respiratory: Normal Cardiovascular: Normal Gastrointestinal: Normal Genitourinary Female: Normal Musculoskeletal: Other (right arm pain) Skin: Normal Neurological: Normal Endocrine: Normal Hemo/Lymphatic: Normal Psychiatric: Normal Physical Exam Vital Signs Temp Pulse Resp BP Pulse Ox 09/20/16 19:59 84 20 120/65 99 09/20/16 16:19 99.4 F 91 H 18 104/71 99 Temperature: Afebrile Blood Pressure: Normal Pulse: Regular Respiratory Rate: Normal Appearance: Positive for: Well-Appearing, Non-Toxic, Comfortable Pain Distress: None Mental Status: Positive for: Alert and Oriented X 3 - Systems Exam Head: Present: Atraumatic, Normocephalic Pupils: Present: PERRL Extroacular Muscles: Present: EOMI Conjunctiva: Present: Normal Mouth: Present: Moist Mucous Membranes Neck: Present: Normal Range of Motion Respiratory/Chest: Present: Clear to Auscultation, Good Air Exchange. No: Respiratory Distress, Accessory Muscle Use Cardiovascular: Present: Regular Rate and Rhythm, Normal S1, S2. No: Murmurs Abdomen: Present: Normal Bowel Sounds. No: Tenderness, Distention, Peritoneal Signs Back: Present: Normal Inspection Upper Extremity: Present: Normal ROM, NORMAL PULSES, Tenderness (mild tenderness right arm), Neurovascularly Intact, Capillary Refill < 2s. No: Cyanosis, Edema, Swelling, Erythema, Temperature Abnormalties Lower Extremity: Present: Normal Inspection. No: Edema Neurological: Present: GCS=15, CN II-XII Intact, Speech Normal Skin: Present: Warm, Dry, Normal Color. No: Rashes Psychiatric: Present: Alert, Oriented x 3, Normal Insight, Normal Concentration Medical Decision Making ED Course and Treatment: 09/20/16 18:[address] Andrade regarding positive DVT right upper extremity. He agrees with plan for admission. Re-evaluation Time: 18:26 Reassessment Condition: Re-examined, Improved - Lab Interpretations Lab Results: 09/20/16 18:44 09/20/16 18:44 Lab Results 09/20/16 18:44: Sodium 137, Potassium 4.2, Chloride 100, Carbon Dioxide 25, Anion Gap 16, BUN 14, Creatinine 0.6, Est GFR ( Amer) > 60, Est GFR (Non- Af Amer) > 60, Random Glucose 79, Calcium 9.6, Total Bilirubin 0.7, AST 33, ALT 28, Alkaline Phosphatase 57, Total Protein 8.1, Albumin 4.7, Globulin 3.5, Albumin/Globulin Ratio 1.3 09/20/16 18:44: PT 11.1, INR 1.03, APTT 25.6 09/20/16 18:44: WBC 5.4 D, RBC 4.65, Hgb 12.7, Hct 38.6, MCV 83.0, MCH 27.3, MCHC 32.9, RDW 12.4, Plt Count 358, MPV 10.4, Gran % 44.7 L, Lymph % (Auto) 42.2 H, [place] % (Auto) 6.4 H, Eos % (Auto) 6.0 H, Baso % (Auto) 0.7, Gran # 2.39 , Lymph # 2.3, [place] # 0.3, Eos # 0.3, Baso # 0.04 - RAD Interpretation Narrative RAD Interpretations (Text): 09/20/16 18:43 CXR: NAD Radiology Orders: 09/20/16 16:37 DUPLEX UPPER EXTRM VEIN RIGHT [US] Stat 09/20/16 18:17 CHEST PORTABLE [RAD] Stat - EKG Interpretation Interpreted by ED Physician: Yes (NSR @ 74 bpm. Normal intervals) Type: 12 lead EKG Comparison: No previous EKG avail. - Medication Orders Current Medication Orders: Discontinued Medications Albuterol Sulfate (Albuterol 0.083% Inhal Afia (2.5 Mg/3 Ml) Ud) 2.5 mg IH [id number] PRN PRN Reason: Shortness of Breath Arformoterol Tartrate (Brovana) 15 mcg IH [id number] [facility] Last Admin: 09/21/16 08:13 Dose: 15 mcg Budesonide (Pulmicort Respules) 1 mg IH [id number] [facility] Last Admin: 09/21/16 08:13 Dose: 1 mg Docusate Sodium (Colace) 100 mg PO BID [facility] Last Admin: 09/21/16 09:40 Dose: 100 mg Enoxaparin Sodium (Lovenox) 90 mg SC STAT STA PRN Reason: Protocol Stop: 09/20/16 18:53 Enoxaparin Sodium (Lovenox) 90 mg SC Q12H LAXMI PRN Reason: Protocol Last Admin: 09/21/16 09:41 Dose: 90 mg Home Med (*Refrigerator Open) Confirm Administered Dose 1 unit XX .STK-MED ONE Stop: 09/21/16 07:03 Loratadine (Claritin) 10 mg PO DAILY LAXMI Last Admin: 09/21/16 09:40 Dose: 10 mg Pantoprazole Sodium (Protonix Ec Tab) 40 mg PO STAT STA Stop: 09/20/16 20:56 Last Admin: 09/20/16 22:41 Dose: 40 mg Pneumococcal Polyvalent Vaccine (Pneumovax 23 Vaccine) 0.5 ml IM .ONCE ONE Stop: 09/20/16 23:41 Disposition/Present on Arrival - Present on Arrival Any Indicators Present on Arrival: No History of DVT/PE: No History of Uncontrolled Diabetes: No Urinary Catheter: No History of Decub. Ulcer: No History Surgical Site Infection Following: None - Disposition Have Diagnosis and Disposition been Completed?: Yes Diagnosis: DVT of upper extremity (deep vein thrombosis) Disposition: HOSPITALIZED Disposition Time: 18:30 Patient Plan: Admission Condition: STABLE
[2016-09-20] MEDS ORDERED: Enoxaparin 100 mg Syringe SC STA (18:52)
[2016-09-20 19:07] LABS: ADD MANUAL DIFF? NO
[2016-09-20 19:13] LABS: BASO # 0.04 K/mm3 (0.0-2.0); BASO % 0.7 % (0.0-3.0); EOS # 0.3 (0.0-0.7); GRAN # 2.39 (1.4-6.5); GRAN % 44.7 % (50.0-68.0); HEMATOCRIT 38.6 % (36.0-48.0); LYMPH # 2.3 (1.2-3.4); LYMPH % 42.2 % (22.0-35.0); MEAN CORPUSCULAR HEMOGLOBIN 27.3 pg (25.0-35.0); MEAN CORPUSCULAR HGB CONC 32.9 g/dl (31.0-37.0); MEAN PLATELET VOLUME 10.4 fl (7.0-11.0); MONO # 0.3 (0.1-0.6); MONO % 6.4 % (1.0-6.0); PLATELET COUNT 358 10^3/uL (120.0-450.0); RED CELL DISTRIBUTION WIDTH 12.4 % (11.5-14.5); WHITE BLOOD COUNT 5.4 10^3/ul (4.5-11.0)
--- NOTE | 2016-09-20 19:18 | US ---
PROCEDURE: Right upper extremity venous US CLINICAL HISTORY: Arm pain and swelling Evaluate for deep venous thrombosis. PHYSICIAN(S): Dusty Connolly M.D FINDINGS: There is echogenic subacute/chronic thrombus noted in the right brachial and basilic veins. The right internal jugular vein and right subclavian vein and right axillary vein are patent and normal. IMPRESSION: 1. Subacute/chronic thrombus in the right brachial and basilic veins above the elbow.
[2016-09-20 19:22] LABS: INR 1.03 (0.93-1.08); PARTIAL THROMBOPLASTIN TIME 25.6 Seconds (23.7-30.8)
[2016-09-20 19:24] LABS: ALB/GLOB RATIO 1.3 (1.1-1.8); ALKALINE PHOSPHATASE 57 U/L (38-133); ALT/SGPT 28 U/L (7-56); AST/SGOT 33 U/L (15-39); BILIRUBIN,TOTAL 0.7 mg/dL (0.2-1.3); BLOOD UREA NITROGEN 14 mg/dL (7-21); CALCIUM 9.6 mg/dL (8.4-10.5); CARBON DIOXIDE 25 mmol/L (21-33); CHLORIDE 100 mmol/L (98-107); GFR AFRICAN-AMERICAN > 60; GLUCOSE,RANDOM 79 mg/dL (70-110); POTASSIUM 4.2 mmol/L (3.6-5.0); SODIUM 137 mmol/L (132-148); TOTAL PROTEIN 8.1 g/dL (5.8-8.3)
--- NOTE | 2016-09-20 19:59 | CP.PCM.HP ---
<Nadir Solano - Last Filed: 09/20/16 20:53> History of Present Illness - History of Present Illness History of Present Illness: 31 year old female pmh asthma, DVT, PE, Anemia [place] [facility] [place]2016 with complaints of a pain sensation in her R antecubitus fossa. Patient states that this has been going for 3 weeks since she was d/c'd from this hospital - she reports that a nurse told her it was due to the IV in her arm. Patient states that at first the pain was a 10/10; now it is a 5/10. The pain does not radiate; nothing makes it better or worse. The quality is dull; it does not radiate. Patient denies any associated symptoms, including F/Ch/WEINER/dizziness/N/ V/D/SOB/CP PMD: Dr. Gregorio PMH: Asthma, DVT, PE, Anemia (Iron deficiency and B12) PSH: 2 C-sections, IVC filter placement, colonoscopy, tubal ligation SH: denies tobacco use, admits to occasional alcohol consumption, denies illicit drug use FH: Mother: brain tumors and DM II, 2 maternal aunts: breast ca, maternal uncle : colon cancer Allergies: NKDA Medications: Asthma inhalers, allergy medications, percocet recently, phentermite, flagyl, cipro (recently) Present on Admission - Present on Admission Any Indicators Present on Admission: No Review of Systems - EENT Additional comments: ROS: Constitutional: pt denies fever, chills, generalized weakness ENT: pt denies dysphagia, otalgia, hearing deficit, rhinorrhea Eyes: pt denies sudden loss of vision, diplopia, blurred vision MSK: pt denies muscle stiffness, joint pain, extremity cramping Cardio: pt denies sob, heart murmur, cp Pulm: pt denies cough, hemoptysis, wheeze GI: pt denies loss of appetite, abdominal pain, constipation, melena, n/v/d : pt denies burning on urination, urinary frequency, hematuria, urinary urgency Neuro: pt denies paresis, paresthesia, dizziness, weiner, numbness, tingling Derm: pt denies skin changes, lesions, nail changes Endo: pt denies intolerance to heat/cold, diaphoresis, night sweats, polydipsia Psych: pt denies anxiety, depression, mood changes Past Patient History - Infectious Disease Hx of Infectious Diseases: None - Past Social History Smoking Status: Never Smoked - PULMONARY Hx Asthma: Yes - HEMATOLOGICAL/ONCOLOGICAL Hx Anemia: Yes - MUSCULOSKELETAL/RHEUMATOLOGICAL Hx Falls: No - GASTROINTESTINAL Other/Comment: Colonoscopy 08/2016 - PSYCHIATRIC Hx Depression: No Hx Emotional Abuse: No Hx Physical Abuse: No Hx Substance Use: No - SURGICAL HISTORY Other/Comment: [place] FILTER. Gastric sleeve - ANESTHESIA Hx Anesthesia Reactions: No Hx Malignant Hyperthermia: No Meds Allergies/Adverse Reactions: Allergies Allergy/AdvReac Type Severity Reaction Status Date / Time No Known Allergies Allergy Verified 04/10/14 20:07 Physical Exam - Additional Findings Additional findings: Phys Exam: VS as below Constitutional: a&o x 4, nad Head and Neck: neck supple, no jvd, trachea midline, carotid midline, no cervical/head mass Eyes: angeli, nonicteric sclera, eom intact ENT: auditory acuity grossly intact, throat not congested, no nasal deformity Cardio: rrr, no m/r/g, no carotid bruit, nml s1, s2 Pulm: no accessory muscle use, equal nml breath sounds bilaterally, ctab Abd: s/nt/nd, nbs x 4 q, no palpable masses Derm: no rashes, no ulcers, no lesions Extr: +R unilateral warmth and tenderness, mild swelling, on UE; +RLE swelling and calf tenderness Neuro: cn II-XII grossly intact, ue and le 5/5 muscle strength bilaterally, no los ue, le bilaterally and core Results - Vital Signs Recent Vital Signs: Last Vital Signs Temp 99.4 F 09/20/16 16:19 Pulse 91 H 09/20/16 16:19 Resp 18 09/20/16 16:19 BP 104/71 09/20/16 16:19 Pulse Ox 99 09/20/16 16:19 - Labs Result Diagrams: 09/20/16 18:44 09/20/16 18:44 Assessment & Plan - Assessment and Plan (Free Text) Assessment: 31 y/o AA female presenting with c/o RUE DVT. Plan: 1.) RUE DVT poss 2/2 hypercoagulable state VS occult malignancy VS local trauma - Dx'd on U/S doppler - CBC/CMP - aPTT, antiphospholipid, INR/PT, AT-III, Factor V, Prothrombin, Protein C, Protein S all ordered to determine cause of hypercoagulability - U/S doppler LE b/l ordered 2/2 R unilateral swelling and calf tendrness - Once labs are drawn, will anticoagulate with Heparin, 1 mg/kg for therapeutic dose rather than just prophylactic 2.) Hx/O Asthma - Pulmicort - Albuterol/Sulfate - Brovana 3.) Hx/O Allergies - Claritin 4.) DVT GI PPHXS - Lovenox, as above; Protonix Discussed in detail with Dr. Flores, attending <Chris Flores - Last Filed: 09/21/16 03:11> Results - Vital Signs Recent Vital Signs: Last Vital Signs Temp 98.5 F 09/20/16 22:24 Pulse 83 09/20/16 22:24 Resp 20 09/20/16 22:24 BP 122/68 09/20/16 22:24 Pulse Ox 99 09/20/16 19:59 - Labs Result Diagrams: 09/20/16 18:44 09/20/16 18:44 Attending/Attestation - Attestation I have personally seen and examined this patient.: Yes I have fully participated in the care of the patient.: Yes I have reviewed all pertinent clinical information: Yes Notes (Text): 09/21/16 02:40 Patient was seen when she was in . Agree with history, physical examination, assessment and plan. Following should be added. This 31 year old obese woman with history of DVT , PE, asthma, anemia,family history of diabetes mellitus, brain cancer with lung mets, epilepsy, breast cancer, colon cancer, social history of using alcohol occasionally, surgical history of tubal ligation, tonsillectomy, c- section x 2, gatric sleeve, IVC filter placement , normal endoscopy 4 years ago, colonoscopy with biopsy done just past Tuesday to rule out Crohn's disease, biopsy result pending, review of systems showing seasonal allergies, allergies to animals, pneumonia for which she was hospitalized , GERD. PRBC transfusion after 2nd delivery, anxiety on xanax sometimes, migraines comes in with complaint of pain in right upper forearm , swelling right upper forearm of 3 weeks duration.
[2016-09-20] MEDS ORDERED: Albuterol HFA 90 mcg/actuation (8 g) IH PRN (20:16)
[2016-09-20] MEDS ORDERED: Albuterol 0.083% Inhal Sol (2.5 mg/3 mL) UD IH PRN (20:22)
[2016-09-20] MEDS ORDERED: Pantoprazole 40 mg EC Tab PO STA (20:55)
[2016-09-20] MEDS: Enoxaparin 100 mg Syringe SC SCH (22:41)
[2016-09-20] MEDS ORDERED: Pneumococcal 23-Valent Vaccine IM ONE (23:40)
[2016-09-20 23:41] VITALS: RESP 20
[2016-09-21 06:59] LABS: ADD MANUAL DIFF? NO
[2016-09-21 07:12] LABS: BASO # 0.03 K/mm3 (0.0-2.0); BASO % 0.7 % (0.0-3.0); EOS # 0.3 (0.0-0.7); EOS % 6.7 % (1.5-5.0); GRAN # 1.59 (1.4-6.5); GRAN % 37.7 % (50.0-68.0); HEMATOCRIT 36.8 % (36.0-48.0); LYMPH % 47.5 % (22.0-35.0); MEAN CELL VOLUME 83.1 fL (80.0-105.0); MEAN CORPUSCULAR HEMOGLOBIN 27.1 pg (25.0-35.0); MEAN CORPUSCULAR HGB CONC 32.6 g/dl (31.0-37.0); MEAN PLATELET VOLUME 10.1 fl (7.0-11.0); MONO # 0.3 (0.1-0.6); MONO % 7.4 % (1.0-6.0); PLATELET COUNT 327 10^3/uL (120.0-450.0); RED CELL DISTRIBUTION WIDTH 12.3 % (11.5-14.5); WHITE BLOOD COUNT 4.2 10^3/ul (4.5-11.0)
--- NOTE | 2016-09-21 07:36 | RAD ---
HISTORY: admission COMPARISON: Chest radiographs 03/29/2012. FINDINGS: LUNGS: No active pulmonary disease. PLEURA: No significant pleural effusion identified, no pneumothorax apparent. CARDIOVASCULAR: Normal. OSSEOUS STRUCTURES: No significant abnormalities. VISUALIZED UPPER ABDOMEN: Normal. OTHER FINDINGS: None. IMPRESSION: No acute cardiopulmonary disease identified or significant interval change
[2016-09-21 07:59] VITALS: BP 119/71; TEMP 98
[2016-09-21] MEDS ORDERED: Arformoterol 15 mcg/2 ml Inh Sol IH SCH (08:00)
[2016-09-21] MEDS ORDERED: Budesonide 0.5 mg/2 ml Inhal Susp UD IH SCH (08:00)
[2016-09-21 08:18] VITALS: PULSE 90
[2016-09-21 08:18] LABS: ALB/GLOB RATIO 1.4 (1.1-1.8); ALKALINE PHOSPHATASE 51 U/L (38-133); ALT/SGPT 32 U/L (7-56); AST/SGOT 27 U/L (15-39); BILIRUBIN,TOTAL 0.5 mg/dL (0.2-1.3); BLOOD UREA NITROGEN 14 mg/dL (7-21); CALCIUM 9.3 mg/dL (8.4-10.5); CARBON DIOXIDE 26 mmol/L (21-33); CHLORIDE 102 mmol/L (95-110); GFR AFRICAN-AMERICAN > 60; GLUCOSE,RANDOM 92 mg/dL (70-110); POTASSIUM 4.1 mmol/L (3.6-5.0); SODIUM 139 mmol/L (132-148); TOTAL PROTEIN 7.1 g/dL (5.8-8.3)
[2016-09-21] MEDS: Enoxaparin 100 mg Syringe SC SCH (09:41)
--- NOTE | 2016-09-21 09:53 | CARD ---
APPROVED REPORT EKG Measurement Heart [id number] <Conclusion> Normal sinus rhythm Normal ECG No change
[2016-09-21] MEDS ORDERED: Fluticasone-Salmeterol 500-50mcg Diskus IH SCH (10:00)
--- NOTE | 2016-09-21 11:23 | CP.PCM.DIS ---
<Kylah Sewell - Last Filed: 09/21/16 11:49> Provider - Provider Date of Admission: 09/20/16 18:50 Attending physician: Darcy Stewart MD Primary care physician: Jg Consults: None- patient referred to heme onc as outpatient Time Spent in preparation of Discharge (in minutes): 60 Hospital Course - Lab Results Lab Results: Most Recent Lab Values WBC 4.2 10^3/ul (4.5-11.0) L D 09/21/16 06:40 RBC 4.43 10^6/uL (3.5-6.1) 09/21/16 06:40 Hgb 12.0 gm/dL (12.0-16.0) 09/21/16 06:40 Hct 36.8 % (36.0-48.0) 09/21/16 06:40 MCV 83.1 fL (80.0-105.0) 09/21/16 06:40 MCH 27.1 pg (25.0-35.0) 09/21/16 06:40 MCHC 32.6 g/dl (31.0-37.0) 09/21/16 06:40 RDW 12.3 % (11.5-14.5) 09/21/16 06:40 Plt Count 327 10^3/uL (120.0-450.0) 09/21/16 06:40 MPV 10.1 fl (7.0-11.0) 09/21/16 06:40 Gran % 37.7 % (50.0-68.0) L 09/21/16 06:40 Lymph % (Auto) 47.5 % (22.0-35.0) H 09/21/16 06:40 [place] % (Auto) 7.4 % (1.0-6.0) H 09/21/16 06:40 Eos % (Auto) 6.7 % (1.5-5.0) H 09/21/16 06:40 Baso % (Auto) 0.7 % (0.0-3.0) 09/21/16 06:40 Gran # 1.59 (1.4-6.5) 09/21/16 06:40 Lymph # 2.0 (1.2-3.4) 09/21/16 06:40 [place] # 0.3 (0.1-0.6) 09/21/16 06:40 Eos # 0.3 (0.0-0.7) 09/21/16 06:40 Baso # 0.03 K/mm3 (0.0-2.0) 09/21/16 06:40 PT 11.1 Seconds (9.9-11.8) 09/20/16 18:44 INR 1.03 (0.93-1.08) 09/20/16 18:44 APTT 25.6 Seconds (23.7-30.8) 09/20/16 18:44 Sodium 139 mmol/L (132-148) 09/21/16 06:40 Potassium 4.1 mmol/L (3.6-5.0) 09/21/16 06:40 Chloride 102 mmol/L (95-110) 09/21/16 06:40 Carbon Dioxide 26 mmol/L (21-33) 09/21/16 06:40 Anion Gap 15 (10-20) 09/21/16 06:40 BUN 14 mg/dL (7-21) 09/21/16 06:40 Creatinine 0.6 mg/dL (0.5-1.4) 09/21/16 06:40 Est GFR ( Amer) > 60 09/21/16 06:40 Est GFR (Non-Af Amer) > 60 09/21/16 06:40 Random Glucose 92 mg/dL (70-110) 09/21/16 06:40 Calcium 9.3 mg/dL (8.4-10.5) 09/21/16 06:40 Total Bilirubin 0.5 mg/dL (0.2-1.3) 09/21/16 06:40 AST 27 U/L (15-39) 09/21/16 06:40 ALT 32 U/L (7-56) 09/21/16 06:40 Alkaline Phosphatase 51 U/L (38-133) 09/21/16 06:40 Total Protein 7.1 g/dL (5.8-8.3) 09/21/16 06:40 Albumin 4.1 g/dL (3.0-4.8) 09/21/16 06:40 Globulin 3.0 gm/dL 09/21/16 06:40 Albumin/Globulin Ratio 1.4 (1.1-1.8) 09/21/16 06:40 - Hospital Course Hospital Course: 31 yo F w/PMH sig for previous DVT admitted for Right upper extremity pain x 2- 3 wks. Ultrasound positive for DVT, no PE. Pt started on therapeutic anticoagulation, transitioned to PO anticoagulation and given appointment with sous chef for outpatient follow up. Pt stable and ready for discharge home on therapeutic anticoagulation. - Date & Time of H&P Date of H&P: 09/20/16 Time of H&P: 19:43 Discharge Exam - Head Exam Head Exam: ATRAUMATIC, NORMAL INSPECTION, NORMOCEPHALIC - Eye Exam Eye Exam: EOMI, Normal appearance - ENT Exam ENT Exam: Mucous Membranes Moist, Normal Exam - Neck Exam Neck exam: Full Rom, Normal Inspection - Respiratory Exam Respiratory Exam: Clear to PA & Lateral, NORMAL BREATHING PATTERN, UNREMARKABLE - Cardiovascular Exam Cardiovascular Exam: REGULAR RHYTHM, +S1, +S2 - GI/Abdominal Exam GI & Abdominal Exam: Normal Bowel Sounds, Unremarkable - Extremities Exam Extremities exam: full ROM Additional comments: no tenderness, erythema, or swelling of right upper extremity - Neurological Exam Neurological exam: Alert, CN II-XII Intact, Oriented x3 - Psychiatric Exam Psychiatric exam: Normal Affect, Normal Mood - Skin Skin Exam: Dry, Intact, Normal Color, Warm Discharge Plan - Discharge Medications Prescriptions: Apixaban [Eliquis] 5 mg PO BID #42 tablet Apixaban [Eliquis] 10 mg PO BID #14 tab - Follow Up Plan Condition: STABLE Disposition: HOME/ ROUTINE Instructions: Deep Venous Thrombosis (DC), Venous Thromboembolism (DC) Additional Instructions: Please take Eliquis 10mg twice a day for a week, then take Eliquis 5mg twice a day. I have made an appointment with Dr. Anuj Jimenez, a sous chef, for September 29 at 4pm. He will be able to discuss your lab results from this hospitalization at that time. Please call Dr. Gregorio's office and get a referral for your insurance authorization. Please return to hospital if you have a recurrence of symptoms, shortness of breath, chest pain, or new onset swelling of any of your limbs. Referrals: Anuj Jimenez MD [Staff Provider] - Clinical Quality Measures - CQM - VTE Did patient receive overlap therapy during hosptialization?: No If no, please select a reason why?: Use of Anticoagulants Is patient being discharged on overlap therapy?: No If no, please select a reason why:: Use of Anticoagulants Medical Reason for discharge Overlap Therapy: No - CQM - Heart Failure Will be discharged to: Home Follow Up Date (must be within 7 days from discharge): 09/29/16 Follow Up Time: 16:00 - Date & Time of Discharge Summary Date of Discharge Summary: 09/21/16 Time of Discharge Summary: 11:43 <Darcy Stewart - Last Filed: 09/22/16 07:53> Provider - Provider Date of Admission: 09/20/16 18:50 Attending physician: Darcy Stewart MD Hospital Course - Lab Results Lab Results: Most Recent Lab Values WBC 4.2 10^3/ul (4.5-11.0) L D 09/21/16 06:40 RBC 4.43 10^6/uL (3.5-6.1) 09/21/16 06:40 Hgb 12.0 gm/dL (12.0-16.0) 09/21/16 06:40 Hct 36.8 % (36.0-48.0) 09/21/16 06:40 MCV 83.1 fL (80.0-105.0) 09/21/16 06:40 MCH 27.1 pg (25.0-35.0) 09/21/16 06:40 MCHC 32.6 g/dl (31.0-37.0) 09/21/16 06:40 RDW 12.3 % (11.5-14.5) 09/21/16 06:40 Plt Count 327 10^3/uL (120.0-450.0) 09/21/16 06:40 MPV 10.1 fl (7.0-11.0) 09/21/16 06:40 Gran % 37.7 % (50.0-68.0) L 09/21/16 06:40 Lymph % (Auto) 47.5 % (22.0-35.0) H 09/21/16 06:40 [place] % (Auto) 7.4 % (1.0-6.0) H 09/21/16 06:40 Eos % (Auto) 6.7 % (1.5-5.0) H 09/21/16 06:40 Baso % (Auto) 0.7 % (0.0-3.0) 09/21/16 06:40 Gran # 1.59 (1.4-6.5) 09/21/16 06:40 Lymph # 2.0 (1.2-3.4) 09/21/16 06:40 [place] # 0.3 (0.1-0.6) 09/21/16 06:40 Eos # 0.3 (0.0-0.7) 09/21/16 06:40 Baso # 0.03 K/mm3 (0.0-2.0) 09/21/16 06:40 PT 11.1 Seconds (9.9-11.8) 09/20/16 18:44 INR 1.03 (0.93-1.08) 09/20/16 18:44 APTT 25.6 Seconds (23.7-30.8) 09/20/16 18:44 Sodium 139 mmol/L (132-148) 09/21/16 06:40 Potassium 4.1 mmol/L (3.6-5.0) 09/21/16 06:40 Chloride 102 mmol/L (95-110) 09/21/16 06:40 Carbon Dioxide 26 mmol/L (21-33) 09/21/16 06:40 Anion Gap 15 (10-20) 09/21/16 06:40 BUN 14 mg/dL (7-21) 09/21/16 06:40 Creatinine 0.6 mg/dL (0.5-1.4) 09/21/16 06:40 Est GFR ( Amer) > 60 09/21/16 06:40 Est GFR (Non-Af Amer) > 60 09/21/16 06:40 Random Glucose 92 mg/dL (70-110) 09/21/16 06:40 Calcium 9.3 mg/dL (8.4-10.5) 09/21/16 06:40 Total Bilirubin 0.5 mg/dL (0.2-1.3) 09/21/16 06:40 AST 27 U/L (15-39) 09/21/16 06:40 ALT 32 U/L (7-56) 09/21/16 06:40 Alkaline Phosphatase 51 U/L (38-133) 09/21/16 06:40 Total Protein 7.1 g/dL (5.8-8.3) 09/21/16 06:40 Albumin 4.1 g/dL (3.0-4.8) 09/21/16 06:40 Globulin 3.0 gm/dL 09/21/16 06:40 Albumin/Globulin Ratio 1.4 (1.1-1.8) 09/21/16 06:40 Attending/Attestation - Attestation I have personally seen and examined this patient.: Yes I have fully participated in the care of the patient.: Yes I have reviewed all pertinent clinical information, including history, physical exam and plan: Yes Notes (Text): 09/22/16 07:51 Attending note; Patient seen and examined with resident. Patient is a 31-year-old female admitted with right upper extremity swelling and found to have brachial DVT. Patient with previous history of PE in the past. Patient also has IVC filter. Not on anticoagulation as outpatient. Started on IV heparin drip. Currently eliquis given. Appointment made with sous chef Dr. Jimenez on 09/29/16. Hematology we determined the need for long-term anticoagulation therapy. Follow-up with PMD Dr. Gregorio. Diagnosis; Right upper extremity DVT History of PE IVC filter Status post perirectal abscess 09/22/16 07:52
--- NOTE | 2016-09-21 18:34 | US ---
HISTORY: Leg pain and swelling. Evaluate for DVT PHYSICIAN(S): Dusty Connolly MD. TECHNIQUE: Duplex sonography and color-flow Doppler with graded compression were used to evaluate the deep venous systems of both lower extremities. FINDINGS: The visualized deep venous systems of both lower extremities are sonographically normal and compressible. Normal wave forms and augmentation are seen. There is no sonographic evidence for deep venous thrombosis in the visualized segments of both lower extremities. IMPRESSION: No sonographic evidence for deep venous thrombosis in the visualized segments of both lower extremities.
[2016-09-23 21:54] LABS: CARDIOLIPIN AB (IGA) <11 APL (<=11)
[2016-09-23 23:46] LABS: PHOSPHATIDYLSERINE AB IGM <25 U/mL (<25)
[2016-09-24 22:02] LABS: B2 GLYCOPROTEIN I AB(IGA) <9 SAU (<=20); B2 GLYCOPROTEIN I AB(IGG) <9 SGU (<=20); B2 GLYCOPROTEIN I AB(IGM) <9 SMU (<=20)
[2016-09-24 22:49] LABS: PHOSPHATIDYLSERINE AB IGA <20 U/mL (<20)
== END 2016-09-21 15:35 | disposition home or self-care (01) ==
LOC: ED 15:59 → INTOOBSV 18:50 → ERH 18:50 → 3RNO 21:31
PROVIDERS: ADMIT Internal Medicine; ATTEND Internal Medicine
DX: I82.621 Acute embolism and thrombosis of deep veins of right upper extremity (principal); J45.909 Unspecified asthma, uncomplicated; D50.9 Iron deficiency anemia, unspecified; Z86.711 Personal history of pulmonary embolism
CPT/HCPCS: 36415; 71010; 80053; 81240; 81241; 85025; 85300; 85303; 85305; 85306; 85610; 85730; 86146; 86147; 86148; 93005; 93970; 93971; 94640; 94760; 99284; G0378; J1650

== ENCOUNTER 2017-06-18 19:59 | Inpatient (IN) | payer MEDICAID ==
[2017-06-18 20:36] VITALS: BMI 36.1
--- NOTE | 2017-06-18 20:45 | ED PDOC ---
Arrival/HPI - General Chief Complaint: Abnormal Skin Integrity Time Seen by Provider: 06/18/17 20:26 Historian: Patient - History of Present Illness Narrative History of Present Illness (Text): 06/18/17 20:45 pt p/w + 3-4 days onset of ana-rectal swelling/pain, worsening daily; pt states pain was severe today prompted patient to arrive to ED for further eval/ exam; pt states pain worse with sitting, unable to sit, stating pain is ~ 9/10; pt states subjective warmth/body malaise over the last 2-3 days; pt had similar discomfort ~ 1 year ago and was dx with ana-rectal abscess/with fistula requiring surgery; pt states no documented fever/chills/sweats, no cp/sob/ palpitations, no abd pain, no n/v, no numbness/tingling, no urinary/bowel changes, + gradually constipated since bowel movement causes severe rectal pain ; pt states no gross bleeding, no fall/trauma/sick contact, no travel counselor automobile club denied rashes pt denied other complaints pt is here for further eval PCP: [facility] surgeon: Dr Guillen Time/Duration: < week (3-4 days) Symptom Onset: Sudden Symptom Course: Worsening Quality: Pressure, Stabbing, Cramping Severity Level: 9, Severe Activities at Onset: Rest Context: Home Past Medical History - Provider Review Nursing Documentation Reviewed: Yes - Travel History Have you recently traveled outside [place] w/in the past 3 mons?: No - Past History Past History: No Previous - Infectious Disease Hx of Infectious Diseases: None - Reproductive Menopause: No Currently : No - Past Medical History Past Medical History: No Previous - Pulmonary Hx Asthma: Yes - Hematological/Oncological Hx Anemia: Yes - Musculoskeletal/Rheumatological Hx Falls: No - Gastrointestinal Other/Comment: Colonoscopy 08/2016 - Psychiatric Hx Depression: No Hx Emotional Abuse: No Hx Physical Abuse: No Hx Substance Use: No - Surgical History Other/Comment: RON DELGADO. Gastric sleeve - Anesthesia Hx Anesthesia Reactions: No Hx Malignant Hyperthermia: No - Suicidal Assessment Feels Threatened In Home Enviroment: No Family/Social History - Physician Review Nursing Documentation Reviewed: Yes Family/Social History: No Known Family HX Smoking Status: Never Smoked Hx Alcohol Use: Yes Hx Substance Use: No Hx Substance Use Treatment: No Allergies/Home Meds Allergies/Adverse Reactions: Allergies No Known Allergies Allergy (Verified 04/10/14 20:07) Home Medications: Home Meds Medication Instructions Recorded Confirmed Albuterol HFA [Ventolin HFA 90 2 puff IH QID PRN 09/02/16 06/19/17 mcg/actuation (8 g)] Cetirizine HCl [Zyrtec] 1 tab PO DAILY 09/02/16 06/19/17 Fluticasone/Salmeterol 500/50 1 puff IH DAILY 09/20/16 06/19/17 [Advair Diskus 500/50] ALPRAZolam [Xanax] 0.25 mg PO PRN PRN 06/19/17 06/19/17 Review of Systems - Review of Systems Constitutional: Normal Eyes: Normal ENT: Normal Respiratory: Normal. absent: SOB Cardiovascular: Normal. absent: Chest Pain Gastrointestinal: Normal, Constipation, Other (rectal pain). absent: Abdominal Pain, Stool Changes, Nausea, Vomiting Genitourinary Female: Normal Musculoskeletal: Normal Skin: Normal Neurological: Normal Endocrine: Normal Hemo/Lymphatic: Normal Psychiatric: Normal Physical Exam Vital Signs Reviewed: Yes Vital Signs Temp Pulse Resp BP Pulse Ox 06/18/17 20:22 98.1 F 114 H 18 144/81 100 Temperature: Afebrile Blood Pressure: Hypertensive Pulse: Tachycardic Respiratory Rate: Normal Appearance: Positive for: Well-Appearing, Non-Toxic, Uncomfortable, Other ( resting in bed, alert/awake, GCS = 15, oriented x 3; uncomfortable, mild distress due to pain, cooperative) Pain Distress: Mild Mental Status: Positive for: Alert and Oriented X 3 - Systems Exam Head: Present: Atraumatic, Normocephalic Pupils: Present: PERRL, Other (no nystagmus, no photophobia, sclera anicteric) Extroacular Muscles: Present: EOMI Conjunctiva: Present: Normal Ears: Present: Normal Mouth: Present: Moist Mucous Membranes, Normal Teeth, Other (uvula/tongue are midline, no exudate/lesions, no drooling/stridor) Pharnyx: Present: Normal Nose (External): Present: Atraumatic Nose (Internal): Present: Normal Inspection Neck: Present: Normal Range of Motion, Trachea Midline. No: Meningeal Signs, MIDLINE TENDERNESS, Paraspinal Tenderness Respiratory/Chest: Present: Clear to Auscultation, Good Air Exchange, Other ( CTA b/l, no w/r/r). No: Respiratory Distress, Accessory Muscle Use Cardiovascular: Present: Regular Rate and Rhythm, Normal S1, S2. No: Murmurs Abdomen: Present: Normal Bowel Sounds, Other (well nourished female, no focal abd tenderness, no masses/rebound/guarding/rigidity). No: Tenderness Rectal: Present: Rectal Tenderness, Other (noted moderately large oval shaped induration/+fluctuant/+ tender on exam, greater than the size of a quarter with mild superficial skin erythema, no expressible discharge noted, + pain extends into the rectum; no gross bleeding noted, no surrounding visible fistulas/ fissures noted). No: Occult Blood, Gross Blood, Hemorrhoids Back: Present: Normal Inspection. No: CVA Tenderness, Midline Tenderness, Paraspinal Tenderness Upper Extremity: Present: Normal Inspection, Normal ROM, NORMAL PULSES, Neurovascularly Intact, Capillary Refill < 2s Lower Extremity: Present: Normal Inspection, NORMAL PULSES, Normal ROM, Neurovascularly Intact, Capillary Refill < 2 s. No: Fam's Sign Neurological: Present: GCS=15, CN II-XII Intact, Speech Normal Skin: Present: Warm, Normal Color, Other (cap refill < 1sec, no ulcerations, no petechiae, no rashes/lesions) Psychiatric: Present: Alert, Oriented x 3 Medical Decision Making ED Course and Treatment: 06/18/172044 Impression: ana-rectal abscess i have consider all the differential diagnosis regarding pt's chief medical complaints/clinical findings, including but are not limited to: ana-rectal abscess A/P: ana-rectal abscess - labs - iv - abx - supportive care - observe/reevaluation 06/18/17 21:06 I spoke to surg resident, made aware, will see patient, would like CT of pelvis to characterize the abscess 06/18/17 21:45 SURG RESIDENT CONSULTED ATTENDING/JESSICA MITCHELL), would like patient admitted to hospitalists, to hold eliquis starting now, and continue IV abx/ pain control as needed; will continue to monitor; likely surgery in 24-48hours 2150 medical facilities section director contacted, made aware, will see patient I spoke to Dr Palmer, hospitalists consultant dietitian, made aware, will admit patient 06/18/17 2200 pt is made aware of her medical results agrees with admission Re-evaluation Time: 21:50 Reassessment Condition: Improving,but remains with symptoms - Lab Interpretations Lab Results: Lab Results 06/18/17 21:17: PT 12.1, INR 1.06, APTT 21.4 L 06/18/17 21:15: POC Glucose (mg/dL) 141 H I have reviewed the lab results: Yes Interpretation: Abnormal lab values (elevated GLU, slightly elevated LFTs, otherwise WNL) - RAD Interpretation Narrative RAD Interpretations (Text): 06/19/17 00:09 CT of Pelvis reviewed by radiologist, shows: FINDINGS: Bowel: Unremarkable. No obstruction. No mucosal thickening. Appendix: No findings to suggest acute appendicitis. Intraperitoneal space: Unremarkable. No free air. No significant fluid collection. Bladder: Unremarkable. No mass. Reproductive: Mildly enlarged uterus with lobulated contours, and may contain small fibroids. Bones/joints: No acute fracture. No dislocation. Soft tissues: 2.5 x 1.3 CM perianal abscess. Vasculature: IVC filter appearing No lower abdominal aortic aneurysm. Lymph nodes: Unremarkable. No enlarged lymph nodes. IMPRESSION: 1. 2.5 x 1.3 CM perianal abscess. 2. Remainder of findings as above. Radiology Orders: 06/18/17 21:02 PELVIS W/IV CONTRAST ONLY [CT] Stat Phone Triage Specialist: Radiologist - Medication Orders Current Medication Orders: Hydromorphone HCl (Dilaudid) 0.5 mg IVP Q4H PRN PRN Reason: Pain, moderate (4-7) Last Admin: 06/18/17 23:43 Dose: 0.5 mg MAR Pain Assessment Document 06/18/17 23:43 (Rec: 06/18/17 23:45 ZACHARIAH [id number]) Pain Reassessment Is this a pain reassessment? Yes Location Upper or Lower Lower Description Description Constant Pain Behavior Irritability Withdrawal from Touch Aggravating Factors Changing Position IVP Administration Document 06/18/17 23:43 (Rec: 06/18/17 23:45 ZACHARIAH [id number]) Charges for Administration # of IVP Administrations 1 Sodium Chloride (Sodium Chloride 0.9%) 1,000 mls @ 125 mls/hr IV .Q8H [facility] Last Admin: 06/18/17 21:28 Dose: 125 mls/hr eMAR Start Stop Document 06/18/17 21:28 RG (Rec: 06/18/17 21:28 RG [id number]) Intravenous Solution Start Date 06/18/17 Start Time 21:28 Metronidazole (Flagyl) 500 mg in 100 mls @ 100 mls/hr IVPB Q8 LAXMI PRN Reason: Protocol Last Admin: 06/18/17 23:20 Dose: 100 mls/hr eMAR Start Stop Document 06/18/17 23:20 RG (Rec: 06/18/17 23:42 RG [id number]) Intravenous Solution Start Date 06/18/17 Start Time 23:20 Ceftriaxone Sodium (Rocephin 1 Gram Ivpb) 1 gm in 100 mls @ 100 mls/hr IVPB DAILY LAXMI PRN Reason: Protocol Vancomycin HCl (Vancomycin 1gm) 1 gm in 250 mls @ 167 mls/hr IVPB DAILY LAXMI PRN Reason: Protocol Discontinued Medications Morphine Sulfate (Morphine) 4 mg IVP STAT STA Stop: 06/18/17 21:04 Last Admin: 06/18/17 21:27 Dose: 4 mg ALEK Pain Assessment Document 06/18/17 21:27 (Rec: 06/18/17 21:27 RG [id number]) Pain Reassessment Is this a pain reassessment? Yes Sleep Is patient sleeping during reassessment? No Presence of Pain Presence of Pain Yes Pain Scale Used Pain Scale Used Numeric Description Pain Behavior Withdrawal from Touch IVP Administration Document 06/18/17 21:27 (Rec: 06/18/17 21:27 [id number]) Charges for Administration # of IVP Administrations 1 Re-Assess: ALEK Pain Assessment Document 06/18/17 22:27 (Rec: 06/18/17 23:24 RG [id number]) Pain Reassessment Is this a pain reassessment? Yes Sleep Is patient sleeping during reassessment? No Presence of Pain Presence of Pain Yes Location Left, Right or Bilateral Right Pain Location Body Site Abdomen Description Description Constant Intensity of Pain at present 5 Pain Behavior Rubbing Site Disposition/Present on Arrival - Present on Arrival Any Indicators Present on Arrival: No History of DVT/PE: No History of Uncontrolled Diabetes: No Urinary Catheter: No History of Decub. Ulcer: No History Surgical Site Infection Following: None - Disposition Have Diagnosis and Disposition been Completed?: Yes Diagnosis: Ana-rectal abscess, Rectal pain, Dehydration Disposition: HOSPITALIZED Disposition Time: 21:52 Patient Plan: Admission Patient Problems: Current Active Problems Problem Status Onset Ana-rectal abscess Acute Rectal pain Acute Dehydration Acute Condition: STABLE
[2017-06-18] MEDS ORDERED: Morphine 4 mg/ml ISec IVP STA (21:03)
[2017-06-18] MEDS: Sodium Chloride 0.9% 1,000 ML IV SCH (21:28)
[2017-06-18 21:40] LABS: INR 1.06 (0.93-1.08); PARTIAL THROMBOPLASTIN TIME 21.4 Seconds (25.1-36.5); PROTHROMBIN TIME 12.1 SECONDS (9.4-12.5)
--- NOTE | 2017-06-18 22:00 | CP.PCM.CON ---
History of Present Illness - History of Present Illness History of Present Illness: Surgery: Dr. Garsia CC: Rectal pain HPI: 31F w. hx of ever-rectal abscesses presents to ED w. rectal pain which started tuesday. She states that the pain is intermittent. It is exacerbated when sitting down and having BM. She denies any blood in her stool. She denies any drainage or pus. She denies any F/C. She states that her symptoms are identical to the ones when she had abscess last yr which required drainage. PMH: [place], lupus, DVTs PSH: ever-rectal abscess drainage, x 2, gastric sleeve, tonsils, IVCF Meds: eliquis NKDA Social: No ETOH/tobacco/drugs Fhx: no crohns, uncle had colon CA Review of Systems - Review of Systems All systems: reviewed and no additional remarkable complaints except (HPI) Past Patient History - Infectious Disease Hx of Infectious Diseases: None - Past Social History Smoking Status: Never Smoked - PULMONARY Hx Asthma: Yes - HEMATOLOGICAL/ONCOLOGICAL Hx Anemia: Yes - MUSCULOSKELETAL/RHEUMATOLOGICAL Hx Falls: No - GASTROINTESTINAL Other/Comment: Colonoscopy 08/2016 - PSYCHIATRIC Hx Depression: No Hx Emotional Abuse: No Hx Physical Abuse: No Hx Substance Use: No - SURGICAL HISTORY Other[facility]Comment[facility] Gastric sleeve - ANESTHESIA Hx Anesthesia Reactions: No Hx Malignant Hyperthermia: No Meds Allergies/Adverse Reactions: Allergies Allergy/AdvReac Type Severity Reaction Status Date / Time No Known Allergies Allergy Verified 04/10/14 20:07 - Medications Medications: Current Medications Sodium Chloride (Sodium Chloride 0.9%) 1,000 mls @ 125 mls/hr IV .Q8H LAXMI Last Admin: 06/18/17 21:28 Dose: 125 mls/hr Physical Exam - Constitutional Appears: Non-toxic, No Acute Distress - Head Exam Head Exam: ATRAUMATIC, NORMOCEPHALIC - Eye Exam Eye Exam: EOMI - ENT Exam ENT Exam: Mucous Membranes Moist, Normal External Ear Exam - Neck Exam Neck exam: Positive for: Full Rom - Respiratory Exam Respiratory Exam: NORMAL BREATHING PATTERN. absent: Accessory Muscle Use, Respiratory Distress - GI/Abdominal Exam GI & Abdominal Exam: Soft. absent: Tenderness - Rectal Exam Additional comments: Abscess 6 o'clock, 2.5x2.5cm, tender, fluctuant - Extremities Exam Extremities exam: Negative for: calf tenderness, pedal edema - Neurological Exam Neurological exam: Alert, Oriented x3 - Psychiatric Exam Psychiatric exam: Normal Affect, Normal Mood Results - Vital Signs Recent Vital Signs: Last Vital Signs Temp 98.1 F 06/18/17 20:22 Pulse 114 H 06/18/17 20:22 Resp 18 06/18/17 20:22 BP 144/81 06/18/17 20:22 Pulse Ox 100 06/18/17 20:22 - Labs Result Diagrams: 06/18/17 22:32 Labs: Laboratory Results - last 24 hr 06/18/17 06/18/17 21:15 21:17 PT 12.1 INR 1.06 APTT 21.4 L POC Glucose (mg/dL) 141 H Assessment & Plan - Assessment and Plan (Free Text) Assessment: 31F w. ever-rectal abscess -F/U CT -abx -pain meds -hold eliquis for 48hrs -plan for I&D on Tuesday -d/w attending Lillie PGY3
[2017-06-18 22:45] LABS: BASO # 0.02 K/mm3 (0.0-2.0); BASO % 0.2 % (0.0-3.0); EOS # 0.2 (0.0-0.7); GRAN # 7.84 (1.4-6.5); GRAN % 72.1 % (50.0-68.0); HEMOGLOBIN 11.4 g/dL (12.0-16.0); LYMPH # 2.2 (1.2-3.4); LYMPH % 19.9 % (22.0-35.0); MEAN CELL VOLUME 82.9 fl (80.0-105.0); MEAN CORPUSCULAR HEMOGLOBIN 27.5 pg (25.0-35.0); MEAN CORPUSCULAR HGB CONC 33.1 g/dl (31.0-37.0); MEAN PLATELET VOLUME 10.4 fl (7.0-11.0); MONO # 0.6 (0.1-0.6); MONO % 5.8 % (1.0-6.0); RBC 4.15 10^6/uL (3.5-6.1); RED CELL DISTRIBUTION WIDTH 12.4 % (11.5-14.5); WHITE BLOOD COUNT 10.9 10^3/ul (4.5-11.0)
[2017-06-18 22:49] LABS: ALB/GLOB RATIO 1.4 (1.1-1.8); ALT/SGPT 72 U/L (7-56); AST/SGOT 56 U/L (14-36); BLOOD UREA NITROGEN 13 mg/dL (7-21); CALCIUM 9.1 mg/dL (8.4-10.5); GFR AFRICAN-AMERICAN > 60; GFR NON-AFRICAN AMERICAN > 60
[2017-06-18] MEDS ORDERED: Iohexol 350 MG/100 ML VIAL ONE (22:54)
--- NOTE | 2017-06-18 22:57 | CP.PCM.HP ---
<Michelle Eason - Last Filed: 06/18/17 23:29> History of Present Illness - History of Present Illness History of Present Illness: This patient is a 31 year old female with a PMHx of Perirectal Abscess, Lupus, DVT's, Asthma, and Anemia who presents complaining of pain from her perirectal abscess. Patient states the abscess is worse with bowel movements or sitting. Patient denies any fevers, chills, SOB, chest pain, changes in bowel habits or urinary symptoms. Patient does state that at times when she flexes at the hip she experiences some lower abdominal pain that goes away,. ROS: As stated above PMHx: As stated above PSHx: x2, Gastric Sleeve, Tonsillectomy, IVC Filter. Allergies: Seasonal SocialHx: Denies tobacco alcohol or illicit drug use. Meds: Eliquis PMD: Dr. Mar Gregorio. Present on Admission - Present on Admission Any Indicators Present on Admission: No Review of Systems - Review of Systems All systems: reviewed and no additional remarkable complaints except (As per HPI ) Review of Systems: As per HPI. Past Patient History - Infectious Disease Hx of Infectious Diseases: None - Past Social History Smoking Status: Never Smoked - PULMONARY Hx Asthma: Yes - HEMATOLOGICAL/ONCOLOGICAL Hx Anemia: Yes - INTEGUMENTARY Other/Comment: abscess to rectum 09/2016 - MUSCULOSKELETAL/RHEUMATOLOGICAL Hx Falls: No - GASTROINTESTINAL Other/Comment: Colonoscopy 08/2016 - PSYCHIATRIC Hx Depression: No Hx Emotional Abuse: No Hx Physical Abuse: No Hx Substance Use: No - SURGICAL HISTORY Other/Comment: G[place] FILTER. Gastric sleeve - ANESTHESIA Hx Anesthesia Reactions: No Hx Malignant Hyperthermia: No Meds Allergies/Adverse Reactions: Allergies Allergy/AdvReac Type Severity Reaction Status Date / Time No Known Allergies Allergy Verified 04/10/14 20:07 Physical Exam - Constitutional Appears: Well, Non-toxic, No Acute Distress - Head Exam Head Exam: ATRAUMATIC, NORMAL INSPECTION, NORMOCEPHALIC - Eye Exam Eye Exam: EOMI, Normal appearance - ENT Exam ENT Exam: Mucous Membranes Moist - Neck Exam Neck exam: Positive for: Normal Inspection - Respiratory Exam Respiratory Exam: Clear to Auscultation Bilateral, NORMAL BREATHING PATTERN. absent: Wheezes - Cardiovascular Exam Cardiovascular Exam: RRR, +S1, +S2 - GI/Abdominal Exam GI & Abdominal Exam: Normal Bowel Sounds, Soft. absent: Guarding, Tenderness - Rectal Exam Additional comments: Abscess 6 o'clock, 2.5x2.5cm, tender, fluctuant - Extremities Exam Extremities exam: Positive for: normal inspection. Negative for: pedal edema - Neurological Exam Neurological exam: Alert, Oriented x3 - Psychiatric Exam Psychiatric exam: Normal Affect, Normal Mood - Skin Skin Exam: Dry, Intact, Normal Color, Warm Results - Vital Signs Recent Vital Signs: Last Vital Signs Temp 98.1 F 06/18/17 20:22 Pulse 114 H 06/18/17 20:22 Resp 18 06/18/17 20:22 BP 144/81 06/18/17 20:22 Pulse Ox 100 06/18/17 20:22 - Labs Result Diagrams: 06/18/17 22:32 06/18/17 22:32 Assessment & Plan - Assessment and Plan (Free Text) Assessment: 31 year old female with a PMHx of Perirectal Abscess, Lupus, DVT's, Asthma, and Anemia admitted for evaluation and treatment and rectal abscess Plan: Rectal Abscess HgBA1C Hold Eliquis Abx: Rocephin, Vancomycin, Flagyl Pain Control: Dilaudid 0.5mg Q4H, Consider topical anesthetic. CT Scan per Surgery to evaluate depth Surgery Consulted ID Consulted [place] Cultures Elevated LFT's Monitor Hx of Lupus/Recurrent DVT's Hold Eliquis Heme Consult INR 1.06 on Admission Hx of Asthma Cont. Home Meds - Advair/Ventolin Hx of Anemia Monitor H/H Proph SCD;s Patient discussed with Attending Mcihelle Eason, PGY-1 <Chikis Palmer N - Last Filed: 06/20/17 05:04> Results - Vital Signs Recent Vital Signs: Last Vital Signs Temp 98.6 F 06/19/17 22:00 Pulse 83 06/19/17 22:00 Resp 16 06/19/17 22:00 BP 109/70 06/19/17 22:00 Pulse Ox 98 06/19/17 22:00 - Labs Result Diagrams: 06/19/17 22:05 06/19/17 07:00 Labs: Laboratory Results - last 24 hr 06/19/17 06/19/17 06/19/17 07:00 07:00 09:25 WBC 10.1 RBC 4.06 Hgb 10.9 L Hct 33.7 L MCV 83.0 MCH 26.8 MCHC 32.3 RDW 12.4 Plt Count 294 MPV 10.3 Gran % 73.5 H Lymph % (Auto) 17.6 L [place] % (Auto) 6.3 H Eos % (Auto) 2.3 Baso % (Auto) 0.3 Gran # 7.41 H Lymph # (Auto) 1.8 [place] # (Auto) 0.6 Eos # (Auto) 0.2 Baso # (Auto) 0.03 PT INR APTT Sodium 139 Potassium 3.7 Chloride 105 Carbon Dioxide 22 Anion Gap 15 BUN 9 Creatinine 0.6 L Est GFR ( Amer) > 60 Est GFR (Non-Af Amer) > 60 Random Glucose 98 Hemoglobin A1c 5.4 Calcium 8.6 Total Bilirubin 0.2 AST 45 H ALT 61 H Alkaline Phosphatase 74 Total Protein 6.5 Albumin 3.7 Globulin 2.8 Albumin/Globulin Ratio 1.3 06/19/17 06/19/17 06/19/17 15:30 19:50 22:05 WBC RBC Hgb 10.9 L Hct MCV MCH MCHC RDW Plt Count MPV Gran % Lymph % (Auto) [place] % (Auto) Eos % (Auto) Baso % (Auto) Gran # Lymph # (Auto) [place] # (Auto) Eos # (Auto) Baso # (Auto) PT 12.4 INR 1.09 H APTT 29.3 268.0 H* Sodium Potassium Chloride Carbon Dioxide Anion Gap BUN Creatinine Est GFR ( Amer) Est GFR (Non-Af Amer) Random Glucose Hemoglobin A1c Calcium Total Bilirubin AST ALT Alkaline Phosphatase Total Protein Albumin Globulin Albumin/Globulin Ratio 06/19/17 06/20/17 22:35 00:20 WBC RBC Hgb Hct MCV MCH MCHC RDW Plt Count MPV Gran % Lymph % (Auto) [place] % (Auto) Eos % (Auto) Baso % (Auto) Gran # Lymph # (Auto) [place] # (Auto) Eos # (Auto) Baso # (Auto) PT INR APTT 113.2 H* 42.1 H Sodium Potassium Chloride Carbon Dioxide Anion Gap BUN Creatinine Est GFR ( Amer) Est GFR (Non-Af Amer) Random Glucose Hemoglobin A1c Calcium Total Bilirubin AST ALT Alkaline Phosphatase Total Protein Albumin Globulin Albumin/Globulin Ratio
[2017-06-18] MEDS: metroNIDAZOLE IV 500 mg/100 ml 500 MG/100 ML BAG IVPB SCH (23:20)
[2017-06-18] MEDS: HYDROmorphone 0.5 mg/0.5 ml ISec IVP PRN (23:43)
--- NOTE | 2017-06-19 00:07 | CT ---
EXAM: CT Pelvis With Intravenous Contrast CLINICAL HISTORY: 31 years old, female; Signs and symptoms; Other: Rectal abcess; Additional info: Rectal abscess? TECHNIQUE: Axial computed tomography images of the pelvis with intravenous contrast. All CT scans at this facility use one or more dose reduction techniques, viz.: automated exposure control; ma/kV adjustment per patient size (including targeted exams where dose is matched to indication; i.e. head); or iterative reconstruction technique. CONTRAST: 100 mL of OMNI 350 administered intravenously. COMPARISON: CT - ABD PELVIS IV CONTRAST ONLY 2016-09-02 19:42 FINDINGS: Bowel: Unremarkable. No obstruction. No mucosal thickening. Appendix: No findings to suggest acute appendicitis. Intraperitoneal space: Unremarkable. No free air. No significant fluid collection. Bladder: Unremarkable. No mass. Reproductive: Mildly enlarged uterus with lobulated contours, and may contain small fibroids. Bones/joints: No acute fracture. No dislocation. Soft tissues: 2.5 x 1.3 CM perianal abscess. Vasculature: IVC filter appearing No lower abdominal aortic aneurysm. Lymph nodes: Unremarkable. No enlarged lymph nodes. IMPRESSION: 1. 2.5 x 1.3 CM perianal abscess. 2. Remainder of findings as above.
[2017-06-19] MEDS: HYDROmorphone 0.5 mg/0.5 ml ISec IVP PRN ×2 (04:29→18:55)
[2017-06-19 04:40] LABS: PH,URINE 6.5 (4.7-8.0); URINE BILIRUBIN NEGATIVE (NEGATIVE); URINE BLOOD NEGATIVE (NEGATIVE); URINE GLUCOSE (UA) NEGATIVE (NEGATIVE); URINE LEUKOCYTE ESTERASE NEGATIVE Leu/uL (NEGATIVE); URINE PROTEIN NEGATIVE mg/dL (<30 mg/dL); URINE UROBILINOGEN 0.2 E.U./dL (<1 E.U./dL)
[2017-06-19 04:44] LABS: URINE APPEARANCE CLEAR (CLEAR); URINE COLOR YELLOW (YELLOW)
[2017-06-19] MEDS: metroNIDAZOLE IV 500 mg/100 ml 500 MG/100 ML BAG IVPB SCH (06:14)
[2017-06-19] MEDS: Sodium Chloride 0.9% 1,000 ML IV SCH ×2 (06:18→09:13)
--- NOTE | 2017-06-19 07:16 | CP.PCM.PN ---
Subjective - Date & Time of Evaluation Date of Evaluation: 06/19/17 Time of Evaluation: 07:13 - Subjective Subjective: Surgery: Dr. Garsia Pt seen and examined. Still has complaints of rectal pain. No F/C. No N/V. Objective - Vital Signs/Intake and Output Vital Signs (last 24 hours): Temp Pulse Resp BP Pulse Ox 97.9 F 89 20 102/61 100 06/19/17 00:44 06/19/17 00:44 06/19/17 00:44 06/19/17 00:44 06/18/17 20:22 - Medications Medications: Current Medications Hydromorphone HCl (Dilaudid) 0.5 mg IVP Q4H PRN PRN Reason: Pain, moderate (4-7) Last Admin: 06/19/17 04:29 Dose: 0.5 mg Sodium Chloride (Sodium Chloride 0.9%) 1,000 mls @ 125 mls/hr IV .Q8H LAXMI Last Admin: 06/19/17 06:18 Dose: 125 mls/hr Metronidazole (Flagyl) 500 mg in 100 mls @ 100 mls/hr IVPB Q8 LAXMI PRN Reason: Protocol Last Admin: 06/19/17 06:14 Dose: 100 mls/hr Ceftriaxone Sodium (Rocephin 1 Gram Ivpb) 1 gm in 100 mls @ 100 mls/hr IVPB DAILY LAXMI PRN Reason: Protocol Vancomycin HCl (Vancomycin 1gm) 1 gm in 250 mls @ 167 mls/hr IVPB DAILY LAXMI PRN Reason: Protocol - Labs Labs: 06/18/17 22:32 06/18/17 22:32 PT 12.1 SECONDS (9.4-12.5) 06/18/17 21:17 INR 1.06 (0.93-1.08) 06/18/17 21:17 APTT 21.4 Seconds (25.1-36.5) L 06/18/17 21:17 - Constitutional Appears: Non-toxic, No Acute Distress - Head Exam Head Exam: ATRAUMATIC, NORMOCEPHALIC - Eye Exam Eye Exam: EOMI - ENT Exam ENT Exam: Mucous Membranes Moist - Neck Exam Neck Exam: Full ROM - Respiratory Exam Respiratory Exam: NORMAL BREATHING PATTERN. absent: Accessory Muscle Use, Respiratory Distress - GI/Abdominal Exam GI & Abdominal Exam: Soft. absent: Tenderness - Rectal Exam Additional comments: ~2x2cm fluctuant tender abscess 6 o'clock position - Extremities Exam Extremities Exam: absent: Calf Tenderness, Pedal Edema - Neurological Exam Neurological Exam: Alert, Awake, Oriented x3 Assessment and Plan - Assessment and Plan (Free Text) Assessment: 31F w. ever-rectal abscess -CT reviewed -hold eliquis -abx -warm compress TID 20 min -pain meds -NPO at midnight -I&D tomorrow -d/w attending Zemaitis PGY3
[2017-06-19 07:47] LABS: BASO # 0.03 K/mm3 (0.0-2.0); BASO % 0.3 % (0.0-3.0); EOS # 0.2 (0.0-0.7); EOS % 2.3 % (1.5-5.0); GRAN # 7.41 (1.4-6.5); GRAN % 73.5 % (50.0-68.0); HEMOGLOBIN 10.9 g/dL (12.0-16.0); LYMPH # 1.8 (1.2-3.4); LYMPH % 17.6 % (22.0-35.0); MEAN CORPUSCULAR HEMOGLOBIN 26.8 pg (25.0-35.0); MEAN CORPUSCULAR HGB CONC 32.3 g/dl (31.0-37.0); MEAN PLATELET VOLUME 10.3 fl (7.0-11.0); MONO # 0.6 (0.1-0.6); MONO % 6.3 % (1.0-6.0); RBC 4.06 10^6/uL (3.5-6.1); RED CELL DISTRIBUTION WIDTH 12.4 % (11.5-14.5); WHITE BLOOD COUNT 10.1 10^3/ul (4.5-11.0)
[2017-06-19 07:54] LABS: ALB/GLOB RATIO 1.3 (1.1-1.8); ALBUMIN 3.7 g/dL (3.0-4.8); ALT/SGPT 61 U/L (7-56); AST/SGOT 45 U/L (14-36); BLOOD UREA NITROGEN 9 mg/dL (7-21); CALCIUM 8.6 mg/dL (8.4-10.5); GFR AFRICAN-AMERICAN > 60; GFR NON-AFRICAN AMERICAN > 60
[2017-06-19] MEDS ORDERED: Vancomycin 1gm in NS 250ml 1 GM/250 ML BAG IVPB SCH ×2 (08:45→10:00)
[2017-06-19] MEDS ORDERED: cefTRIAXone 1 gm 1 GM/100 ML BAG IVPB SCH (10:00)
[2017-06-19] MEDS ORDERED: DiphenhydrAMINE 50 mg/ml Inj IVP STA (10:23)
[2017-06-19] MEDS ORDERED: Arformoterol 15 mcg/2 ml Inh Sol IH ONE (10:30)
[2017-06-19] MEDS ORDERED: Budesonide 0.5 mg/2 ml Inhal Susp UD IH ONE (10:30)
[2017-06-19] MEDS ORDERED: Fluticasone-Salmeterol 250-50mcg Diskus IH SCH (10:30)
[2017-06-19] MEDS: Meropenem IV 1 gm in NS 50 ML IVPB SCH ×3 (10:53→22:32)
--- NOTE | 2017-06-19 10:56 | CP.PCM.PN ---
<Aleksander Magaña - Last Filed: 06/19/17 10:41> Subjective - Date & Time of Evaluation Date of Evaluation: 06/19/17 Time of Evaluation: 09:30 - Subjective Subjective: Subjective: Patient seen and examined at bedside. Resting comfortably in bed. Admits to feeling itchiness throughout the body after starting vancomycin. Admits to baseline SOB which is attributing to her asthma. Patient states perirectal pain has improved relative to baseline. Denies fever, chills, chest pain, abdominal pain, nausea, vomiting, diarrhea, constipation, and urinary symptoms. 12-point review of systems negative except as indicated in the HPI Physical Examination: - Constitutional Appears: Well, Non-toxic, No Acute Distress - Head Exam Head Exam: ATRAUMATIC, NORMAL INSPECTION, NORMOCEPHALIC - Eye Exam Eye Exam: EOMI, Normal appearance - ENT Exam ENT Exam: Mucous Membranes Moist - Neck Exam Neck exam: Positive for: Normal Inspection - Respiratory Exam Respiratory Exam: Clear to Auscultation Bilateral, NORMAL BREATHING PATTERN. absent: Wheezes - Cardiovascular Exam Cardiovascular Exam: RRR, +S1, +S2 - GI/Abdominal Exam GI & Abdominal Exam: Normal Bowel Sounds, Soft. absent: Guarding, Tenderness - Rectal Exam Additional comments: deferred at this time as per previous note- 2x2cm fluctuant tender abscess 6 o'clock position - Extremities Exam Extremities exam: Positive for: normal inspection. Negative for: pedal edema - Neurological Exam Neurological exam: Alert, Oriented x3 - Psychiatric Exam Psychiatric exam: Normal Affect, Normal Mood - Skin Skin Exam: Dry, Intact, Normal Color, Warm Assessment and Plan: Patient is a 31 year old female with a PMHx of Perirectal Abscess, Lupus, DVT's , Asthma, and Anemia admitted for evaluation and treatment and rectal abscess Rectal Abscess - hold Eliquis - continue with Rocephin and Flagyl - stop vancomycin due to allergic reaction- new recs as per ID - pain Control with dilaudid 0.5mg Q4H - CT Scan 2.5 x 1.3 CM perianal abscess - Surgery Consulted- plan for OR on 06/19/2017 - blood, urine, and wound cultures ordered and pending Elevated LFT's - downtrending - will monitor closely via CMP Hx of Lupus/Recurrent DVT's - Hold Eliquis - Heme Consult- appreciate recommendations Hx of Asthma - Continue brovana and pulmicort respules Hx of Anemia - normocytic, downtrending - Monitor H/H Proph - dvt- SCD - gi- not indicated Patient seen, case discussed with, and plan approved by attending physician. Objective - Vital Signs/Intake and Output Vital Signs (last 24 hours): Temp Pulse Resp BP Pulse Ox 98 F 80 18 124/70 99 06/19/17 06:00 06/19/17 06:00 06/19/17 06:00 06/19/17 06:00 06/19/17 06:00 - Medications Medications: Current Medications Arformoterol Tartrate (Brovana) 15 mcg IH [id number] LAXMI Budesonide (Pulmicort Respules) 0.5 mg IH [id number] LAXMI Hydromorphone HCl (Dilaudid) 0.5 mg IVP Q4H PRN PRN Reason: Pain, moderate (4-7) Last Admin: 06/19/17 04:29 Dose: 0.5 mg Sodium Chloride (Sodium Chloride 0.9%) 1,000 mls @ 50 mls/hr IV .Q20H LAXMI Last Admin: 06/19/17 09:13 Dose: 50 mls/hr Meropenem (Merrem Iv 1 Gm Premix) 50 mls @ 100 mls/hr IVPB Q8 LAXMI PRN Reason: Protocol Ondansetron HCl (Zofran Inj) 4 mg IVP Q4H PRN PRN Reason: Nausea/Vomiting Last Admin: 06/19/17 09:59 Dose: 4 mg - Labs Labs: 06/19/17 07:00 06/19/17 07:00 PT 12.1 SECONDS (9.4-12.5) 06/18/17 21:17 INR 1.06 (0.93-1.08) 06/18/17 21:17 APTT 21.4 Seconds (25.1-36.5) L 06/18/17 21:17 <Olga Palmer - Last Filed: 06/19/17 12:43> Objective - Vital Signs/Intake and Output Vital Signs (last 24 hours): Temp Pulse Resp BP Pulse Ox 98 F 80 18 124/70 99 06/19/17 06:00 06/19/17 06:00 06/19/17 06:00 06/19/17 06:00 06/19/17 06:00 - Medications Medications: Current Medications Albuterol/Ipratropium (Duoneb 3 Mg/0.5 Mg (3 Ml) Ud) 3 ml IH [id number] PRN PRN Reason: Shortness of Breath Arformoterol Tartrate (Brovana) 15 mcg IH [id number] LAXMI Budesonide (Pulmicort Respules) 0.5 mg IH [id number] LAXMI Hydromorphone HCl (Dilaudid) 0.5 mg IVP Q4H PRN PRN Reason: Pain, moderate (4-7) Last Admin: 06/19/17 04:29 Dose: 0.5 mg Sodium Chloride (Sodium Chloride 0.9%) 1,000 mls @ 50 mls/hr IV .Q20H LAXMI Last Admin: 06/19/17 09:13 Dose: 50 mls/hr Meropenem (Merrem Iv 1 Gm Premix) 50 mls @ 100 mls/hr IVPB Q8 LAXMI PRN Reason: Protocol Last Admin: 06/19/17 10:53 Dose: 100 mls/hr Heparin Sodium/Sodium Chloride (Heparin 95993 Units/250ml 1/2 Normal Saline) 25 ,000 units in 250 mls @ 17.146 mls/hr IV .Q01F75G PRN; Protocol; 18 UNITS/KG/HR PRN Reason: ADJUST RATE PER PROTOCOL Stop: 06/20/17 08:00 Ondansetron HCl (Zofran Inj) 4 mg IVP Q4H PRN PRN Reason: Nausea/Vomiting Last Admin: 06/19/17 09:59 Dose: 4 mg - Labs Labs: 06/19/17 07:00 06/19/17 07:00 PT 12.1 SECONDS (9.4-12.5) 06/18/17 21:17 INR 1.06 (0.93-1.08) 06/18/17 21:17 APTT 21.4 Seconds (25.1-36.5) L 06/18/17 21:17 Attending/Attestation - Attestation I have personally seen and examined this patient.: Yes I have fully participated in the care of the patient.: Yes I have reviewed all pertinent clinical information, including history, physical exam and plan: Yes Notes (Text): I have seen and examined the patient at bedside. Agree with the above note with the following additions/ exceptions: Briefly this is 31 year old female with history of Lupus, recurrent DVT's , PE in the past on eliquis at home, asthma, anemia and h/o ever anal abscess who came for management of perirectal abscess which is already draining. Continue warm compresses. Follow up on cultures. Continue meropenem. Eliquis is on hold for possible I&D tomorrow. Will start IV heparin as patient is high risk for dvts given recurrent DVT's and PE. Awaiting hematology consult. Continue analgesics. Upon discharge patient will follow up with Dr Gregorio.
[2017-06-19] MEDS ORDERED: Albuterol-Ipratrop 3 mg / 0.5 (3 ml) UD IH PRN (10:57)
[2017-06-19] MEDS ORDERED: Heparin25000 units/250ml 1/2NS 25,000 UNITS/250 ML BAG IV PRN (11:41)
--- NOTE | 2017-06-19 14:57 | CP.PCM.CON ---
History of Present Illness - History of Present Illness History of Present Illness: 31 year old female with PMH of perirectal abscess, SLE, history of DVT S/P IVC filter placement, asthma, chronic anemia, S/P , S/P tonsillectomy came in complaining of pain in her perirectal area especially when sitting down or having bowel movement. It apparently started a few days ago. She denies fever or chills, no nausea or vomiting, no abdominal pain, no diarrhea, no dysuria. CT A/P is showing perirectal abscess. Infectious diseases consult is requested to further evaluate and manage. Review of Systems - Review of Systems All systems: reviewed and no additional remarkable complaints except (as per HPI ) Past Patient History - Infectious Disease Hx of Infectious Diseases: None - Past Social History Smoking Status: Never Smoked - PULMONARY Hx Asthma: Yes - HEMATOLOGICAL/ONCOLOGICAL Hx Anemia: Yes Other/Comment: DVT left leg with darinel filter. - INTEGUMENTARY Other/Comment: abscess to rectum 09/2016 - MUSCULOSKELETAL/RHEUMATOLOGICAL Hx Falls: No - GASTROINTESTINAL Other/Comment: Colonoscopy 08/2016 - PSYCHIATRIC Hx Substance Use: No - SURGICAL HISTORY Other/Comment: G[place] FILTER. Gastric sleeve - ANESTHESIA Hx Anesthesia Reactions: No Hx Malignant Hyperthermia: No Meds Allergies/Adverse Reactions: Allergies Allergy/AdvReac Type Severity Reaction Status Date / Time No Known Allergies Allergy Verified 04/10/14 20:07 - Medications Medications: Current Medications Hydromorphone HCl (Dilaudid) 0.5 mg IVP Q4H PRN PRN Reason: Pain, moderate (4-7) Last Admin: 06/19/17 04:29 Dose: 0.5 mg Sodium Chloride (Sodium Chloride 0.9%) 1,000 mls @ 50 mls/hr IV .Q20H LAXMI Vancomycin HCl (Vancomycin 1gm) 1 gm in 250 mls @ 167 mls/hr IVPB Q12H LAXMI PRN Reason: Protocol Last Admin: 06/19/17 09:08 Dose: 167 mls/hr Meropenem (Merrem Iv 1 Gm Premix) 50 mls @ 100 mls/hr IVPB Q8 LAXMI PRN Reason: Protocol Physical Exam - Constitutional Appears: Non-toxic, No Acute Distress - Head Exam Head Exam: NORMAL INSPECTION - Neck Exam Neck exam: Negative for: Meningismus - Respiratory Exam Respiratory Exam: Decreased Breath Sounds. absent: Rales - Cardiovascular Exam Cardiovascular Exam: +S1, +S2 - GI/Abdominal Exam GI & Abdominal Exam: Soft. absent: Tenderness Results - Vital Signs Recent Vital Signs: Last Vital Signs Temp 98 F 06/19/17 06:00 Pulse 80 06/19/17 06:00 Resp 18 06/19/17 06:00 BP 124/70 06/19/17 06:00 Pulse Ox 99 06/19/17 06:00 - Labs Result Diagrams: 06/19/17 07:00 06/19/17 07:00 Labs: Laboratory Results - last 24 hr 06/18/17 06/18/17 06/19/17 22:32 22:32 04:00 WBC 10.9 D RBC 4.15 Hgb 11.4 L Hct 34.4 L MCV 82.9 MCH 27.5 MCHC 33.1 RDW 12.4 Plt Count 297 MPV 10.4 Gran % 72.1 H Lymph % (Auto) 19.9 L [place] % (Auto) 5.8 Eos % (Auto) 2.0 Baso % (Auto) 0.2 Gran # 7.84 H Lymph # (Auto) 2.2 [place] # (Auto) 0.6 Eos # (Auto) 0.2 Baso # (Auto) 0.02 Sodium 139 Potassium 3.6 Chloride 103 Carbon Dioxide 23 Anion Gap 17 BUN 13 Creatinine 0.6 L Est GFR ( Amer) > 60 Est GFR (Non-Af Amer) > 60 Random Glucose 148 H Calcium 9.1 Total Bilirubin 0.2 AST 56 H ALT 72 H Alkaline Phosphatase 69 Total Protein 6.9 Albumin 4.0 Globulin 2.9 Albumin/Globulin Ratio 1.4 Urine Color Yellow Urine Appearance Clear Urine pH 6.5 Ur Specific [place] <= 1.005 Urine Protein Negative Urine Glucose (UA) Negative Urine Ketones Negative Urine Blood Negative Urine Nitrate Negative Urine Bilirubin Negative Urine Urobilinogen 0.2 Ur Leukocyte Esterase Negative Urine HCG, Qual 06/19/17 06/19/17 06/19/17 04:00 07:00 07:00 WBC 10.1 RBC 4.06 Hgb 10.9 L Hct 33.7 L MCV 83.0 MCH 26.8 MCHC 32.3 RDW 12.4 Plt Count 294 MPV 10.3 Gran % 73.5 H Lymph % (Auto) 17.6 L [place] % (Auto) 6.3 H Eos % (Auto) 2.3 Baso % (Auto) 0.3 Gran # 7.41 H Lymph # (Auto) 1.8 [place] # (Auto) 0.6 Eos # (Auto) 0.2 Baso # (Auto) 0.03 Sodium 139 Potassium 3.7 Chloride 105 Carbon Dioxide 22 Anion Gap 15 BUN 9 Creatinine 0.6 L Est GFR ( Amer) > 60 Est GFR (Non-Af Amer) > 60 Random Glucose 98 Calcium 8.6 Total Bilirubin 0.2 AST 45 H ALT 61 H Alkaline Phosphatase 74 Total Protein 6.5 Albumin 3.7 Globulin 2.8 Albumin/Globulin Ratio 1.3 Urine Color Urine Appearance Urine pH Ur Specific [place] Urine Protein Urine Glucose (UA) Urine Ketones Urine Blood Urine Nitrate Urine Bilirubin Urine Urobilinogen Ur Leukocyte Esterase Urine HCG, Qual Negative Assessment & Plan - Assessment and Plan (Free Text) Plan: Assessment Perirectal abscess SLE history of DVT S/P IVC filter placement asthma chronic anemia S/P S/P tonsillectomy Plan Started Zyvox and Merrem pending blood cx; for I and D tomorrow and will await abscess cultures will monitor clinically will check HIV test
[2017-06-19 15:52] LABS: INR 1.09 (0.93-1.08); PARTIAL THROMBOPLASTIN TIME 29.3 Seconds (25.1-36.5); PROTHROMBIN TIME 12.4 SECONDS (9.4-12.5)
[2017-06-19] MEDS: Linezolid 600 mg in D5W 300 ml 600 MG/300 ML BAG IVPB SCH ×2 (16:35→22:38)
[2017-06-19] MEDS: Budesonide 0.5 mg/2 ml Inhal Susp UD IH SCH (22:30)
[2017-06-19] MEDS: Arformoterol 15 mcg/2 ml Inh Sol IH SCH (22:30)
[2017-06-20] MEDS: Sodium Chloride 0.9% 1,000 ML IV SCH (04:12)
[2017-06-20] MEDS: Meropenem IV 1 gm in NS 50 ML IVPB SCH ×3 (05:14→22:48)
[2017-06-20 07:00] LABS: BASO # 0.03 K/mm3 (0.0-2.0); BASO % 0.5 % (0.0-3.0); EOS # 0.4 (0.0-0.7); EOS % 5.6 % (1.5-5.0); GRAN # 3.18 (1.4-6.5); GRAN % 50.7 % (50.0-68.0); HEMOGLOBIN 10.5 g/dL (12.0-16.0); LYMPH # 2.4 (1.2-3.4); LYMPH % 38.2 % (22.0-35.0); MEAN CELL VOLUME 83.5 fl (80.0-105.0); MEAN CORPUSCULAR HEMOGLOBIN 27.1 pg (25.0-35.0); MEAN CORPUSCULAR HGB CONC 32.4 g/dl (31.0-37.0); MEAN PLATELET VOLUME 9.8 fl (7.0-11.0); MONO # 0.3 (0.1-0.6); RBC 3.88 10^6/uL (3.5-6.1); RED CELL DISTRIBUTION WIDTH 12.6 % (11.5-14.5); WHITE BLOOD COUNT 6.3 10^3/ul (4.5-11.0)
[2017-06-20 07:30] LABS: ALB/GLOB RATIO 1.3 (1.1-1.8); ALBUMIN 3.4 g/dL (3.0-4.8); ALT/SGPT 54 U/L (7-56); AST/SGOT 35 U/L (14-36); BLOOD UREA NITROGEN 11 mg/dL (7-21); CALCIUM 8.2 mg/dL (8.4-10.5); GFR AFRICAN-AMERICAN > 60; GFR NON-AFRICAN AMERICAN > 60
[2017-06-20] MEDS: Budesonide 0.5 mg/2 ml Inhal Susp UD IH SCH ×2 (07:32→20:49)
[2017-06-20] MEDS: Arformoterol 15 mcg/2 ml Inh Sol IH SCH ×2 (07:32→20:49)
[2017-06-20 08:20] VITALS: RESP 20
[2017-06-20] MEDS: Linezolid 600 mg in D5W 300 ml 600 MG/300 ML BAG IVPB SCH ×2 (10:33→23:39)
[2017-06-20] MEDS: HYDROmorphone 0.5 mg/0.5 ml ISec IVP PRN ×2 (12:39→22:46)
--- NOTE | 2017-06-20 13:12 | PCM.SURG1 ---
Surgeon's Initial Post Op Note - Surgeon's Notes Surgeon: Sun Rad Technologist: Lillie PGY3 Type of Anesthesia: Local Pre-Operative Diagnosis: ever-rectal abscess Operative Findings: pus Post-Operative Diagnosis: same Operation Performed: I&D Specimen/Specimens Removed: none Estimated Blood Loss: EBL {In ML}: 5 Blood Products Given: N/A Drains Used: No Drains Post-Op Condition: Good Date of Surgery/Procedure: 06/20/17 Time of Surgery/Procedure: 13:12
--- NOTE | 2017-06-20 13:22 | CP.PCM.PN ---
<Aleksander Magaña - Last Filed: 06/20/17 13:19> Subjective - Date & Time of Evaluation Date of Evaluation: 06/20/17 Time of Evaluation: 11:15 - Subjective Subjective: Subjective: Patient seen and examined at bedside. Resting comfortably in bed. Patient states perirectal pain has improved relative to baseline. Admits to vaginal dishcarge. Denies fever, chills, chest pain, abdominal pain, nausea, vomiting, diarrhea, constipation, and urinary symptoms. 12-point review of systems negative except as indicated in the HPI Physical Examination: - Constitutional Appears: Well, Non-toxic, No Acute Distress - Head Exam Head Exam: ATRAUMATIC, NORMAL INSPECTION, NORMOCEPHALIC - Eye Exam Eye Exam: EOMI, Normal appearance - ENT Exam ENT Exam: Mucous Membranes Moist - Neck Exam Neck exam: Positive for: Normal Inspection - Respiratory Exam Respiratory Exam: Clear to Auscultation Bilateral, NORMAL BREATHING PATTERN. absent: Wheezes - Cardiovascular Exam Cardiovascular Exam: RRR, +S1, +S2 - GI/Abdominal Exam GI & Abdominal Exam: Normal Bowel Sounds, Soft. absent: Guarding, Tenderness - Rectal Exam Additional comments: deferred at this time as per previous note- 2x2cm fluctuant tender abscess 6 o'clock position - Extremities Exam Extremities exam: Positive for: normal inspection. Negative for: pedal edema - Neurological Exam Neurological exam: Alert, Oriented x3 - Psychiatric Exam Psychiatric exam: Normal Affect, Normal Mood - Skin Skin Exam: Dry, Intact, Normal Color, Warm Assessment and Plan: Patient is a 31 year old female with a PMHx of Perirectal Abscess, Lupus, DVT's , Asthma, and Anemia admitted for evaluation and treatment and rectal abscess Rectal Abscess - hold Eliquis - continue with Rocephin and Flagyl - stop vancomycin due to allergic reaction- new recs as per ID - pain Control with dilaudid 0.5mg Q4H - CT Scan 2.5 x 1.3 CM perianal abscess - Surgery Consulted- I and D performed today - blood- no growth in 24 hours - urine- no growth - wound cultures - gram neg rods Elevated LFT's - resolved - will monitor closely via CMP Vaginal Discharge - start diflucan at discharge Hx of Lupus/Recurrent DVT's - Hold Eliquis - Heme Consult- appreciate recommendations Hx of Asthma - Continue brovana and pulmicort respules Hx of Anemia - normocytic, downtrending - Monitor H/H Proph - dvt- SCD - gi- not indicated Patient seen, case discussed with, and plan approved by attending physician. Objective - Vital Signs/Intake and Output Vital Signs (last 24 hours): Temp Pulse Resp BP Pulse Ox 97.8 F 79 20 116/66 100 06/20/17 08:19 06/20/17 08:19 06/20/17 08:19 06/20/17 08:19 06/20/17 08:19 Intake and Output: 06/20/17 06/20/17 06:59 18:59 Intake Total 705 Balance 705 - Medications Medications: Current Medications Albuterol/Ipratropium (Duoneb 3 Mg/0.5 Mg (3 Ml) Ud) 3 ml IH [id number] PRN PRN Reason: Shortness of Breath Arformoterol Tartrate (Brovana) 15 mcg IH [id number] [facility] Last Admin: 06/20/17 07:32 Dose: 15 mcg Budesonide (Pulmicort Respules) 0.5 mg IH [id number] LAXMI Last Admin: 06/20/17 07:32 Dose: 0.5 mg Hydromorphone HCl (Dilaudid) 0.5 mg IVP Q4 PRN PRN Reason: Pain, severe (8-10) Last Admin: 06/20/17 12:39 Dose: 0.5 mg Sodium Chloride (Sodium Chloride 0.9%) 1,000 mls @ 50 mls/hr IV .Q20H LAXMI Last Admin: 06/20/17 04:12 Dose: 50 mls/hr Meropenem (Merrem Iv 1 Gm Premix) 50 mls @ 100 mls/hr IVPB Q8 LAXMI PRN Reason: Protocol Last Admin: 06/20/17 05:14 Dose: 100 mls/hr Linezolid (Zyvox 600mg/300ml D5w) 600 mg in 300 mls @ 200 mls/hr IVPB Q12 LAXMI PRN Reason: Protocol Stop: 06/26/17 13:46 Last Admin: 06/20/17 10:33 Dose: 200 mls/hr Ketorolac Tromethamine (Toradol) 30 mg IVP Q8 PRN PRN Reason: Pain, moderate (4-7) Last Admin: 06/19/17 23:37 Dose: 30 mg Ondansetron HCl (Zofran Inj) 4 mg IVP Q4H PRN PRN Reason: Nausea/Vomiting Last Admin: 06/19/17 19:06 Dose: 4 mg - Labs Labs: 06/20/17 06:15 06/20/17 06:15 PT 12.4 SECONDS (9.4-12.5) 06/19/17 15:30 INR 1.09 (0.93-1.08) H 06/19/17 15:30 APTT 30.5 Seconds (25.1-36.5) 06/20/17 10:00 <Darcy Stewart - Last Filed: 06/20/17 17:36> Objective - Vital Signs/Intake and Output Vital Signs (last 24 hours): Temp Pulse Resp BP Pulse Ox 98 F 67 20 109/73 97 06/20/17 14:56 06/20/17 14:56 06/20/17 14:56 06/20/17 14:56 06/20/17 14:56 Intake and Output: 06/20/17 06/20/17 06:59 18:59 Intake Total 705 240 Balance 705 240 - Medications Medications: Current Medications Albuterol/Ipratropium (Duoneb 3 Mg/0.5 Mg (3 Ml) Ud) 3 ml IH [id number] PRN PRN Reason: Shortness of Breath Arformoterol Tartrate (Brovana) 15 mcg IH [id number] [facility] Last Admin: 06/20/17 07:32 Dose: 15 mcg Budesonide (Pulmicort Respules) 0.5 mg IH [id number] [facility] Last Admin: 06/20/17 07:32 Dose: 0.5 mg Hydromorphone HCl (Dilaudid) 0.5 mg IVP Q4 PRN PRN Reason: Pain, severe (8-10) Last Admin: 06/20/17 12:39 Dose: 0.5 mg Sodium Chloride (Sodium Chloride 0.9%) 1,000 mls @ 50 mls/hr IV .Q20H LAXMI Last Admin: 06/20/17 04:12 Dose: 50 mls/hr Meropenem (Merrem Iv 1 Gm Premix) 50 mls @ 100 mls/hr IVPB Q8 LAXMI PRN Reason: Protocol Last Admin: 06/20/17 14:20 Dose: 100 mls/hr Linezolid (Zyvox 600mg/300ml D5w) 600 mg in 300 mls @ 200 mls/hr IVPB Q12 LAXMI PRN Reason: Protocol Stop: 06/26/17 13:46 Last Admin: 06/20/17 10:33 Dose: 200 mls/hr Ketorolac Tromethamine (Toradol) 30 mg IVP Q8 PRN PRN Reason: Pain, moderate (4-7) Last Admin: 06/20/17 17:28 Dose: 30 mg Ondansetron HCl (Zofran Inj) 4 mg IVP Q4H PRN PRN Reason: Nausea/Vomiting Last Admin: 06/20/17 14:20 Dose: 4 mg - Labs Labs: 06/20/17 06:15 06/20/17 06:15 PT 12.4 SECONDS (9.4-12.5) 06/19/17 15:30 INR 1.09 (0.93-1.08) H 06/19/17 15:30 APTT 30.5 Seconds (25.1-36.5) 06/20/17 10:00 Attending/Attestation - Attestation I have personally seen and examined this patient.: Yes I have fully participated in the care of the patient.: Yes I have reviewed all pertinent clinical information, including history, physical exam and plan: Yes Notes (Text): 06/20/17 17:32 attending note; Patient seen and examined with resident. Patient is a 31 year old female with history of Lupus, recurrent DVT's , PE in the past on eliquis at home, asthma, anemia and h/o veer anal abscess who came for management of perirectal abscess which is already draining. Continue warm compresses. plan for incision and drainage today. Blood culture is negative so far.. Urine culture is negative. Continue meropenem on Zyvox. patient had itching with IV vancomycin yesterday. No shortness of breath or rash noted. Currently on IV heparin drip.Eliquis is on hold. Upon discharge patient will follow up with Dr Gregorio.
[2017-06-20] MEDS ORDERED: Heparin25000 units/250ml 1/2NS 25,000 UNITS/250 ML BAG IV PRN (19:01)
--- NOTE | 2017-06-20 19:20 | CP.PCM.PN ---
Subjective - Date & Time of Evaluation Date of Evaluation: 06/20/17 Time of Evaluation: 12:25 - Subjective Subjective: Patient is feeling better, no diarrhea, no fevers. Objective - Vital Signs/Intake and Output Vital Signs (last 24 hours): Temp Pulse Resp BP Pulse Ox 97.8 F 79 20 116/66 100 06/20/17 08:19 06/20/17 08:19 06/20/17 08:19 06/20/17 08:19 06/20/17 08:19 Intake and Output: 06/20/17 06/20/17 06:59 18:59 Intake Total 705 Balance 705 - Medications Medications: Current Medications Albuterol/Ipratropium (Duoneb 3 Mg/0.5 Mg (3 Ml) Ud) 3 ml IH [id number] PRN PRN Reason: Shortness of Breath Arformoterol Tartrate (Brovana) 15 mcg IH [id number] [facility] Last Admin: 06/20/17 07:32 Dose: 15 mcg Budesonide (Pulmicort Respules) 0.5 mg IH [id number] LAXMI Last Admin: 06/20/17 07:32 Dose: 0.5 mg Hydromorphone HCl (Dilaudid) 0.5 mg IVP Q4 PRN PRN Reason: Pain, severe (8-10) Last Admin: 06/19/17 18:55 Dose: 0.5 mg Sodium Chloride (Sodium Chloride 0.9%) 1,000 mls @ 50 mls/hr IV .Q20H [facility] Last Admin: 06/20/17 04:12 Dose: 50 mls/hr Meropenem (Merrem Iv 1 Gm Premix) 50 mls @ 100 mls/hr IVPB Q8 LAXMI PRN Reason: Protocol Last Admin: 06/20/17 05:14 Dose: 100 mls/hr Linezolid (Zyvox 600mg/300ml D5w) 600 mg in 300 mls @ 200 mls/hr IVPB Q12 LAXMI PRN Reason: Protocol Stop: 06/26/17 13:46 Last Admin: 06/19/17 22:38 Dose: 200 mls/hr Ketorolac Tromethamine (Toradol) 30 mg IVP Q8 PRN PRN Reason: Pain, moderate (4-7) Last Admin: 06/19/17 23:37 Dose: 30 mg Ondansetron HCl (Zofran Inj) 4 mg IVP Q4H PRN PRN Reason: Nausea/Vomiting Last Admin: 06/19/17 19:06 Dose: 4 mg - Labs Labs: 06/20/17 06:15 06/20/17 06:15 PT 12.4 SECONDS (9.4-12.5) 06/19/17 15:30 INR 1.09 (0.93-1.08) H 06/19/17 15:30 APTT 100.7 Seconds (25.1-36.5) H* 06/20/17 06:15 - Constitutional Appears: Chronically Ill - Head Exam Head Exam: NORMAL INSPECTION - Neck Exam Neck Exam: absent: Meningismus - Respiratory Exam Respiratory Exam: Decreased Breath Sounds - Cardiovascular Exam Cardiovascular Exam: +S1, +S2 - GI/Abdominal Exam GI & Abdominal Exam: Soft. absent: Tenderness Assessment and Plan - Assessment and Plan (Free Text) Plan: Assessment Perirectal abscess, S/P I and D SLE history of DVT S/P IVC filter placement asthma chronic anemia S/P S/P tonsillectomy Plan Started Zyvox and Merrem day 2 pending blood cx and final wound cx results will continue to monitor clinically will follow up HIV test
[2017-06-20] MEDS ORDERED: Heparin 25,000units in 1/2NS /250 ML BAG IV PRN (19:26)
[2017-06-21] MEDS: Meropenem IV 1 gm in NS 50 ML IVPB SCH ×2 (05:59→14:00)
[2017-06-21] MEDS: Sodium Chloride 0.9% 1,000 ML IV SCH (06:02)
[2017-06-21] MEDS: Arformoterol 15 mcg/2 ml Inh Sol IH SCH (07:23)
[2017-06-21] MEDS: Budesonide 0.5 mg/2 ml Inhal Susp UD IH SCH (07:23)
[2017-06-21] MEDS: Linezolid 600 mg in D5W 300 ml 600 MG/300 ML BAG IVPB SCH ×2 (08:13→12:39)
[2017-06-21 08:23] VITALS: O2SAT 99
--- NOTE | 2017-06-21 09:37 | CP.PCM.PN ---
<Aleksander Magaña - Last Filed: 06/21/17 09:31> Subjective - Date & Time of Evaluation Date of Evaluation: 06/21/17 Time of Evaluation: 07:10 - Subjective Subjective: Subjective: Patient seen and examined at bedside. Resting comfortably in bed. No acute overnight events. Patient states perirectal pain worse as packing was changed shortly before evaluation. Denies fever, chills, chest pain, abdominal pain, nausea, vomiting, diarrhea, constipation, and urinary symptoms. 12-point review of systems negative except as indicated in the HPI Physical Examination: - Constitutional Appears: Well, Non-toxic, No Acute Distress - Head Exam Head Exam: ATRAUMATIC, NORMAL INSPECTION, NORMOCEPHALIC - Eye Exam Eye Exam: EOMI, Normal appearance - ENT Exam ENT Exam: Mucous Membranes Moist - Neck Exam Neck exam: Positive for: Normal Inspection - Respiratory Exam Respiratory Exam: Clear to Auscultation Bilateral, NORMAL BREATHING PATTERN. absent: Wheezes - Cardiovascular Exam Cardiovascular Exam: RRR, +S1, +S2 - GI/Abdominal Exam GI & Abdominal Exam: Normal Bowel Sounds, Soft. absent: Guarding, Tenderness - Rectal Exam Additional comments: deferred at this time secondary to pain - Extremities Exam Extremities exam: Positive for: normal inspection. Negative for: pedal edema - Neurological Exam Neurological exam: Alert, Oriented x3 - Psychiatric Exam Psychiatric exam: Normal Affect, Normal Mood - Skin Skin Exam: Dry, Intact, Normal Color, Warm Assessment and Plan: Patient is a 31 year old female with a PMHx of Perirectal Abscess, Lupus, DVT's , Asthma, and Anemia admitted for evaluation and treatment and rectal abscess Rectal Abscess - restart eliquis this AM, stop heparin drip 1 hour after morning dose of eliquis - Zyvox and Merrem day 3 - stop vancomycin due to allergic reaction- new recs as per ID - pain Control with dilaudid 0.5mg Q4H - Surgery Consulted- I and D performed yesterday- packing needs to be changed daily, sitz baths recommended - blood- no growth in 48 hours - urine- no growth - wound cultures - gram neg rods Elevated LFT's - resolved - will monitor closely via CMP Vaginal Discharge - start diflucan at discharge Hx of Lupus/Recurrent DVT's - restart eliquis this AM, stop heparin drip 1 hour after morning dose of eliquis Hx of Asthma - Continue brovana and pulmicort respules Hx of Anemia - normocytic, downtrending - Monitor H/H Proph - dvt- SCD - gi- not indicated Patient seen, case discussed with, and plan approved by attending physician. Objective - Vital Signs/Intake and Output Vital Signs (last 24 hours): Temp Pulse Resp BP Pulse Ox 97.8 F 74 20 119/60 99 06/21/17 08:22 06/21/17 08:22 06/21/17 08:22 06/21/17 08:22 06/21/17 08:22 Intake and Output: 06/21/17 06/21/17 06:59 18:59 Intake Total 230 Balance 230 - Medications Medications: Current Medications Albuterol/Ipratropium (Duoneb 3 Mg/0.5 Mg (3 Ml) Ud) 3 ml IH [id number] PRN PRN Reason: Shortness of Breath Apixaban (Eliquis) 5 mg PO BID LAXMI PRN Reason: Protocol Arformoterol Tartrate (Brovana) 15 mcg IH [id number] [facility] Last Admin: 06/21/17 07:23 Dose: 15 mcg Budesonide (Pulmicort Respules) 0.5 mg IH [id number] [facility] Last Admin: 06/21/17 07:23 Dose: 0.5 mg Hydromorphone HCl (Dilaudid) 0.5 mg IVP Q4 PRN PRN Reason: Pain, severe (8-10) Last Admin: 06/20/17 22:46 Dose: 0.5 mg Sodium Chloride (Sodium Chloride 0.9%) 1,000 mls @ 50 mls/hr IV .Q20H [facility] Last Admin: 06/21/17 06:02 Dose: 50 mls/hr Meropenem (Merrem Iv 1 Gm Premix) 50 mls @ 100 mls/hr IVPB Q8 LAXMI PRN Reason: Protocol Last Admin: 06/21/17 05:59 Dose: 100 mls/hr Linezolid (Zyvox 600mg/300ml D5w) 600 mg in 300 mls @ 200 mls/hr IVPB Q12 LAXMI PRN Reason: Protocol Stop: 06/26/17 13:46 Last Admin: 06/21/17 08:13 Dose: 200 mls/hr Heparin Sodium/Sodium Chloride (Heparin 86186 Units/250ml 1/2 Normal Saline) 25 ,000 units in 250 mls @ 14.683 mls/hr IV .Q17H2M PRN; Protocol; 15 UNITS/KG/HR PRN Reason: ADJUST RATE PER PROTOCOL Last Titration: 06/21/17 04:47 Dose: 13 units/kg/hr, 12.725 mls/hr Ketorolac Tromethamine (Toradol) 30 mg IVP Q8 PRN PRN Reason: Pain, moderate (4-7) Last Admin: 06/21/17 08:10 Dose: 30 mg Ondansetron HCl (Zofran Inj) 4 mg IVP Q4H PRN PRN Reason: Nausea/Vomiting Last Admin: 06/21/17 08:11 Dose: 4 mg - Labs Labs: 06/20/17 06:15 06/20/17 06:15 PT 12.4 SECONDS (9.4-12.5) 06/19/17 15:30 INR 1.09 (0.93-1.08) H 06/19/17 15:30 APTT 85.2 Seconds (25.1-36.5) H 06/21/17 04:20 <Darcy Stewart - Last Filed: 06/21/17 16:58> Objective - Vital Signs/Intake and Output Vital Signs (last 24 hours): Temp Pulse Resp BP Pulse Ox 98 F 87 20 130/72 99 06/21/17 13:52 06/21/17 13:52 06/21/17 13:52 06/21/17 13:52 06/21/17 13:52 Intake and Output: 06/21/17 06/21/17 06:59 18:59 Intake Total 230 460 Balance 230 460 - Labs Labs: 06/21/17 10:35 06/21/17 10:35 PT 12.4 SECONDS (9.4-12.5) 06/19/17 15:30 INR 1.09 (0.93-1.08) H 06/19/17 15:30 APTT 95.3 Seconds (25.1-36.5) H 06/21/17 10:35 Attending/Attestation - Attestation I have personally seen and examined this patient.: Yes I have fully participated in the care of the patient.: Yes I have reviewed all pertinent clinical information, including history, physical exam and plan: Yes Notes (Text): 06/21/17 16:53 attending note; Patient seen and examined with resident. Patient is a 31 year old female with history of Lupus, recurrent DVT's , PE in the past on eliquis at home, IVC filter ,asthma, anemia and h/o ever anal abscess who came for management of perirectal abscess which is already draining. the patient was evaluated by surgery. Status post incision and drainage. Continue packing for surgery. Instructions given by surgery for wound care. Patient was treated with IV meropenem and Zyvox. blood culture, urine culture is negative. Wound culture grew Escherichia coli and coagulase-negative staph. patient will bed home with doxycycline and Augmentin. Patient was on IV heparin drip per the surgical procedure. Started back on Eliquis. follow-up with oncology Dr. Jimenez. Upon discharge patient will follow up with Dr Gregorio.
--- NOTE | 2017-06-21 10:12 | CP.PCM.DIS ---
<Aleksander Magaña - Last Filed: 06/21/17 10:35> Provider - Provider Date of Admission: 06/18/17 21:46 Attending physician: Darcy Stewart MD Primary care physician: Mar Gregorio DO Time Spent in preparation of Discharge (in minutes): 45 Diagnosis - Discharge Diagnosis (1) Ana-rectal abscess Status: Acute Priority: Medium (2) History of DVT (deep vein thrombosis) Status: Chronic Priority: Medium (3) Lupus Status: Chronic Priority: Medium (4) Asthma Status: Chronic Priority: Medium (5) Anemia Status: Chronic Priority: Medium (6) Vulvovaginal candidiasis Status: Acute Priority: Medium Hospital Course - Lab Results Lab Results: Micro Results 06/19/17 09:20 Abscess - Abscess Gram Stain - Final 06/19/17 09:20 Abscess - Abscess Wound Culture - Final Escherichia Coli Coagulase Neg Staphylococcus 06/18/17 22:15 Blood Blood Culture - Preliminary NO GROWTH AFTER 48 HOURS 06/18/17 23:27 Urine,Clean Catch Urine Culture - Final No Growth (<1,000 CFU/ML) Most Recent Lab Values WBC 6.3 10^3/ul (4.5-11.0) D 06/20/17 06:15 RBC 3.88 10^6/uL (3.5-6.1) 06/20/17 06:15 Hgb 10.5 g/dL (12.0-16.0) L 06/20/17 06:15 Hct 32.4 % (36.0-48.0) L 06/20/17 06:15 MCV 83.5 fl (80.0-105.0) 06/20/17 06:15 MCH 27.1 pg (25.0-35.0) 06/20/17 06:15 MCHC 32.4 g/dl (31.0-37.0) 06/20/17 06:15 RDW 12.6 % (11.5-14.5) 06/20/17 06:15 Plt Count 261 10^3/uL (120.0-450.0) 06/20/17 06:15 MPV 9.8 fl (7.0-11.0) 06/20/17 06:15 Gran % 50.7 % (50.0-68.0) 06/20/17 06:15 Lymph % (Auto) 38.2 % (22.0-35.0) H 06/20/17 06:15 [place] % (Auto) 5.0 % (1.0-6.0) 06/20/17 06:15 Eos % (Auto) 5.6 % (1.5-5.0) H 06/20/17 06:15 Baso % (Auto) 0.5 % (0.0-3.0) 06/20/17 06:15 Gran # 3.18 (1.4-6.5) 06/20/17 06:15 Lymph # (Auto) 2.4 (1.2-3.4) 06/20/17 06:15 [place] # (Auto) 0.3 (0.1-0.6) 06/20/17 06:15 Eos # (Auto) 0.4 (0.0-0.7) 06/20/17 06:15 Baso # (Auto) 0.03 K/mm3 (0.0-2.0) 06/20/17 06:15 PT 12.4 SECONDS (9.4-12.5) 06/19/17 15:30 INR 1.09 (0.93-1.08) H 06/19/17 15:30 APTT 85.2 Seconds (25.1-36.5) H 06/21/17 04:20 Sodium 138 mmol/L (132-148) 06/20/17 06:15 Potassium 3.7 mmol/L (3.6-5.0) 06/20/17 06:15 Chloride 104 mmol/L (98-107) 06/20/17 06:15 Carbon Dioxide 25 mmol/L (21-33) 06/20/17 06:15 Anion Gap 12 (10-20) 06/20/17 06:15 BUN 11 mg/dL (7-21) 06/20/17 06:15 Creatinine 0.7 mg/dl (0.7-1.2) 06/20/17 06:15 Est GFR ( Amer) > 60 06/20/17 06:15 Est GFR (Non-Af Amer) > 60 06/20/17 06:15 POC Glucose (mg/dL) 92 mg/dL (65-110) 06/20/17 10:57 Random Glucose 99 mg/dL (70-110) 06/20/17 06:15 Hemoglobin A1c 5.4 % (4.2-6.5) 06/19/17 09:25 Calcium 8.2 mg/dL (8.4-10.5) L 06/20/17 06:15 Total Bilirubin 0.2 mg/dL (0.2-1.3) 06/20/17 06:15 AST 35 U/L (14-36) 06/20/17 06:15 ALT 54 U/L (7-56) 06/20/17 06:15 Alkaline Phosphatase 64 U/L (38-126) 06/20/17 06:15 Total Protein 6.2 g/dL (5.8-8.3) 06/20/17 06:15 Albumin 3.4 g/dL (3.0-4.8) 06/20/17 06:15 Globulin 2.7 gm/dL 06/20/17 06:15 Albumin/Globulin Ratio 1.3 (1.1-1.8) 06/20/17 06:15 Urine Color Yellow (YELLOW) 06/19/17 04:00 Urine Appearance Clear (CLEAR) 06/19/17 04:00 Urine pH 6.5 (4.7-8.0) 06/19/17 04:00 Ur Specific [place] <= 1.005 (1.005-1.035) 06/19/17 04:00 Urine Protein Negative mg/dL (<30 mg/dL) 06/19/17 04:00 Urine Glucose (UA) Negative mg/dL (NEGATIVE) 06/19/17 04:00 Urine Ketones Negative mg/dL (NEGATIVE) 06/19/17 04:00 Urine Blood Negative (NEGATIVE) 06/19/17 04:00 Urine Nitrate Negative (NEGATIVE) 06/19/17 04:00 Urine Bilirubin Negative (NEGATIVE) 06/19/17 04:00 Urine Urobilinogen 0.2 E.U./dL (<1 E.U./dL) 06/19/17 04:00 Ur Leukocyte Esterase Negative All/uL (NEGATIVE) 06/19/17 04:00 Urine HCG, Qual Negative (NEGATIVE) 06/19/17 04:00 HIV 1&2 Ag/Ab, 4th Gen Nonreactive (Nonreactive) 06/19/17 09:20 - Hospital Course Hospital Course: Patient is a 31 year old female with a PMHx of Perirectal Abscess, Lupus, DVT's , Asthma, and Anemia admitted for evaluation and treatment of rectal pain. With the use of physical examinations, lab work, and imaging the patient was diagnosed with and treated for a perirectal abscess along with the patients chronic medical conditions. During their hospital stay the patient was seen by general surgery (Dr. Guillen ) and their recommendations were both appreciated and utilized in the care for this patient. Patient underwent incision and drainage of perirectal abscess with no post procedure complications. During their hospital stay the patient underwent a pelvis CT which was reviewed, appreciated, and utilized in the management of the patients clinical course. The pelvic CT showed 2.5 x 1.3 CM perianal abscess. Patient was treated with meropenem, zyvox, analgesics, heparin gtt, amongst other empiric/therapeutic medications. Patient advised that she should not become while taking doxycycline. At this time the patient is medically stable for discharge. Patient understands and appreciates discharge plan. Patient instructed to follow up with primary care physicians and referrals within three to five days from discharge. Furthermore, the patient is instructed to take medications as prescribed and to return to emergency room for evaluation of intractable headache, fever, chills, dizziness , chest pain, shortness of breath, abdominal pain, nausea, vomiting, diarrhea, constipation, and urinary symptoms. This is a brief summary of the patients hospital course. Please see patient chart for full details. Discharge Exam - Head Exam Head Exam: NORMAL INSPECTION - Additional Findings Additional findings: - Constitutional Appears: Well, Non-toxic, No Acute Distress - Head Exam Head Exam: ATRAUMATIC, NORMAL INSPECTION, NORMOCEPHALIC - Eye Exam Eye Exam: EOMI, Normal appearance - ENT Exam ENT Exam: Mucous Membranes Moist - Neck Exam Neck exam: Positive for: Normal Inspection - Respiratory Exam Respiratory Exam: Clear to Auscultation Bilateral, NORMAL BREATHING PATTERN. absent: Wheezes - Cardiovascular Exam Cardiovascular Exam: RRR, +S1, +S2 - GI/Abdominal Exam GI & Abdominal Exam: Normal Bowel Sounds, Soft. absent: Guarding, Tenderness - Rectal Exam Additional comments: packing inserted at incision site - Extremities Exam Extremities exam: Positive for: normal inspection. Negative for: pedal edema - Neurological Exam Neurological exam: Alert, Oriented x3 - Psychiatric Exam Psychiatric exam: Normal Affect, Normal Mood - Skin Skin Exam: Dry, Intact, Normal Color, Warm Discharge Plan - Discharge Medications Prescriptions: Amoxicillin/Clavulanate [Augmentin 875 MG-125 MG] 1 tab PO Q12 10 Days #20 tab Fluconazole [Diflucan] 150 mg PO ONCE 1 Days tab Doxycycline Hyclate [Doryx] 100 mg PO DAILY 10 Days #10 cap - Follow Up Plan Condition: STABLE Disposition: HOME/ ROUTINE Instructions: Smoking: Not Just Harmful to Your Lungs and Heart, Dangers of Secondhand Smoke, Anal Abscess and Fistula (DC), Acute Abdominal Pain (DC), Acute Abdominal Pain (GEN), Abscess (GEN) Additional Instructions: Patient Instructions: 1. Take medications as prescribed. Doxycycline and augmentin for 10 days. Diflucan for 1 day. Do not get while taking doxycycline. 2. Follow up with PMD within three to five days from discharge. 3. Follow up with Dr. Harshad Guillen in 1 week from discharge. 4. Change packing daily if tolerated. If not, just dress with pads. Clean area with hydrogen peroxide every day 5. Recommend sitz bath 2 times per day and after every bowel movement. until follow up with Dr. Guillen 6. Return to the emergency room for evaluation of intractable headache, fever, chills, dizziness, chest pain, shortness of breath, abdominal pain, nausea, vomiting, diarrhea, constipation, and urinary symptoms. Referrals: Mar Gregorio DO [Primary Care Provider] - Follow up with primary Harshad Guillen MD [Staff Provider] - <Darcy Stewart - Last Filed: 06/21/17 16:59> Provider - Provider Date of Admission: 06/18/17 21:46 Attending physician: Darcy Stewart MD Primary care physician: Mar Gregorio DO Hospital Course - Lab Results Lab Results: Micro Results 06/19/17 09:20 Abscess - Abscess Gram Stain - Final 06/19/17 09:20 Abscess - Abscess Wound Culture - Final Escherichia Coli Coagulase Neg Staphylococcus 06/18/17 22:15 Blood Blood Culture - Preliminary NO GROWTH AFTER 48 HOURS 06/18/17 23:27 Urine,Clean Catch Urine Culture - Final No Growth (<1,000 CFU/ML) Most Recent Lab Values WBC 5.5 10^3/ul (4.5-11.0) 06/21/17 10:35 RBC 3.89 10^6/uL (3.5-6.1) 06/21/17 10:35 Hgb 10.7 g/dL (12.0-16.0) L 06/21/17 10:35 Hct 32.3 % (36.0-48.0) L 06/21/17 10:35 MCV 83.0 fl (80.0-105.0) 06/21/17 10:35 MCH 27.5 pg (25.0-35.0) 06/21/17 10:35 MCHC 33.1 g/dl (31.0-37.0) 06/21/17 10:35 RDW 12.4 % (11.5-14.5) 06/21/17 10:35 Plt Count 286 10^3/uL (120.0-450.0) 06/21/17 10:35 MPV 9.5 fl (7.0-11.0) 06/21/17 10:35 Gran % 59.6 % (50.0-68.0) 06/21/17 10:35 Lymph % (Auto) 30.6 % (22.0-35.0) 06/21/17 10:35 [place] % (Auto) 4.8 % (1.0-6.0) 06/21/17 10:35 Eos % (Auto) 4.6 % (1.5-5.0) 06/21/17 10:35 Baso % (Auto) 0.4 % (0.0-3.0) 06/21/17 10:35 Gran # 3.25 (1.4-6.5) 06/21/17 10:35 Lymph # (Auto) 1.7 (1.2-3.4) 06/21/17 10:35 [place] # (Auto) 0.3 (0.1-0.6) 06/21/17 10:35 Eos # (Auto) 0.3 (0.0-0.7) 06/21/17 10:35 Baso # (Auto) 0.02 K/mm3 (0.0-2.0) 06/21/17 10:35 PT 12.4 SECONDS (9.4-12.5) 06/19/17 15:30 INR 1.09 (0.93-1.08) H 06/19/17 15:30 APTT 95.3 Seconds (25.1-36.5) H 06/21/17 10:35 Sodium 136 mmol/L (132-148) 06/21/17 10:35 Potassium 3.7 mmol/L (3.6-5.0) 06/20/17 06:15 Chloride 104 mmol/L (98-107) 06/21/17 10:35 Carbon Dioxide 24 mmol/L (21-33) 06/21/17 10:35 Anion Gap 11 (10-20) 06/21/17 10:35 BUN 8 mg/dL (7-21) 06/21/17 10:35 Creatinine 0.6 mg/dl (0.7-1.2) L 06/21/17 10:35 Est GFR ( Amer) > 60 06/21/17 10:35 Est GFR (Non-Af Amer) > 60 06/21/17 10:35 POC Glucose (mg/dL) 92 mg/dL (65-110) 06/20/17 10:57 Random Glucose 115 mg/dL (70-110) H 06/21/17 10:35 Hemoglobin A1c 5.4 % (4.2-6.5) 06/19/17 09:25 Calcium 8.6 mg/dL (8.4-10.5) 06/21/17 10:35 Total Bilirubin < 0.1 mg/dL (0.2-1.3) L 06/21/17 10:35 AST 26 U/L (14-36) 06/21/17 10:35 ALT 48 U/L (7-56) 06/21/17 10:35 Alkaline Phosphatase 60 U/L (38-126) 06/21/17 10:35 Total Protein 6.3 g/dL (5.8-8.3) 06/21/17 10:35 Albumin 3.4 g/dL (3.0-4.8) 06/21/17 10:35 Globulin 2.9 gm/dL 06/21/17 10:35 Albumin/Globulin Ratio 1.2 (1.1-1.8) 06/21/17 10:35 Urine Color Yellow (YELLOW) 06/19/17 04:00 Urine Appearance Clear (CLEAR) 06/19/17 04:00 Urine pH 6.5 (4.7-8.0) 06/19/17 04:00 Ur Specific [place] <= 1.005 (1.005-1.035) 06/19/17 04:00 Urine Protein Negative mg/dL (<30 mg/dL) 06/19/17 04:00 Urine Glucose (UA) Negative mg/dL (NEGATIVE) 06/19/17 04:00 Urine Ketones Negative mg/dL (NEGATIVE) 06/19/17 04:00 Urine Blood Negative (NEGATIVE) 06/19/17 04:00 Urine Nitrate Negative (NEGATIVE) 06/19/17 04:00 Urine Bilirubin Negative (NEGATIVE) 06/19/17 04:00 Urine Urobilinogen 0.2 E.U./dL (<1 E.U./dL) 06/19/17 04:00 Ur Leukocyte Esterase Negative All/uL (NEGATIVE) 06/19/17 04:00 Urine HCG, Qual Negative (NEGATIVE) 06/19/17 04:00 HIV 1&2 Ag/Ab, 4th Gen Nonreactive (Nonreactive) 06/19/17 09:20 Attending/Attestation - Attestation I have personally seen and examined this patient.: Yes I have fully participated in the care of the patient.: Yes I have reviewed all pertinent clinical information, including history, physical exam and plan: Yes Notes (Text): 06/21/17 16:59 attending note; Patient seen and examined with resident. Patient is a 31 year old female with history of Lupus, recurrent DVT's , PE in the past on eliquis at home, IVC filter ,asthma, anemia and h/o ana anal abscess who came for management of perirectal abscess which is already draining. the patient was evaluated by surgery. Status post incision and drainage. Continue packing for surgery. Instructions given by surgery for wound care. Patient was treated with IV meropenem and Zyvox. blood culture, urine culture is negative. Wound culture grew Escherichia coli and coagulase-negative staph. patient will bed home with doxycycline and Augmentin. Patient was on IV heparin drip per the surgical procedure. Started back on Eliquis. follow-up with oncology Dr. Jimenez. Upon discharge patient will follow up with Dr Gregorio.
--- NOTE | 2017-06-21 10:36 | CP.PCM.PN ---
Subjective - Date & Time of Evaluation Date of Evaluation: 06/21/17 Time of Evaluation: 10:32 - Subjective Subjective: Surgery: Dr. Garsia Pt seen and examined. States she's feeling a lot better and only has pain with packing changes. Tolerating diet and ambulating w/o difficulty. Denies other complaints. No F/C. Objective - Vital Signs/Intake and Output Vital Signs (last 24 hours): Temp Pulse Resp BP Pulse Ox 97.8 F 74 20 119/60 99 06/21/17 08:22 06/21/17 08:22 06/21/17 08:22 06/21/17 08:22 06/21/17 08:22 Intake and Output: 06/21/17 06/21/17 06:59 18:59 Intake Total 230 Balance 230 - Medications Medications: Current Medications Albuterol/Ipratropium (Duoneb 3 Mg/0.5 Mg (3 Ml) Ud) 3 ml IH [id number] PRN PRN Reason: Shortness of Breath Apixaban (Eliquis) 5 mg PO BID LAXMI PRN Reason: Protocol Arformoterol Tartrate (Brovana) 15 mcg IH [id number] [id number] Last Admin: 06/21/17 07:23 Dose: 15 mcg Budesonide (Pulmicort Respules) 0.5 mg IH [id number] LAXMI Last Admin: 06/21/17 07:23 Dose: 0.5 mg Hydromorphone HCl (Dilaudid) 0.5 mg IVP Q4 PRN PRN Reason: Pain, severe (8-10) Last Admin: 06/20/17 22:46 Dose: 0.5 mg Sodium Chloride (Sodium Chloride 0.9%) 1,000 mls @ 50 mls/hr IV .Q20H LAXMI Last Admin: 06/21/17 06:02 Dose: 50 mls/hr Meropenem (Merrem Iv 1 Gm Premix) 50 mls @ 100 mls/hr IVPB Q8 LAXMI PRN Reason: Protocol Last Admin: 06/21/17 05:59 Dose: 100 mls/hr Linezolid (Zyvox 600mg/300ml D5w) 600 mg in 300 mls @ 200 mls/hr IVPB Q12 LAXMI PRN Reason: Protocol Stop: 06/26/17 13:46 Last Admin: 06/21/17 08:13 Dose: 200 mls/hr Heparin Sodium/Sodium Chloride (Heparin 92178 Units/250ml 1/2 Normal Saline) 25 ,000 units in 250 mls @ 14.683 mls/hr IV .Q17H2M PRN; Protocol; 15 UNITS/KG/HR PRN Reason: ADJUST RATE PER PROTOCOL Last Titration: 06/21/17 04:47 Dose: 13 units/kg/hr, 12.725 mls/hr Ketorolac Tromethamine (Toradol) 30 mg IVP Q8 PRN PRN Reason: Pain, moderate (4-7) Last Admin: 06/21/17 08:10 Dose: 30 mg Ondansetron HCl (Zofran Inj) 4 mg IVP Q4H PRN PRN Reason: Nausea/Vomiting Last Admin: 06/21/17 08:11 Dose: 4 mg - Labs Labs: 06/20/17 06:15 06/20/17 06:15 PT 12.4 SECONDS (9.4-12.5) 06/19/17 15:30 INR 1.09 (0.93-1.08) H 06/19/17 15:30 APTT 85.2 Seconds (25.1-36.5) H 06/21/17 04:20 - Constitutional Appears: Well, No Acute Distress - Eye Exam Eye Exam: Normal appearance - ENT Exam ENT Exam: Mucous Membranes Moist - Respiratory Exam Respiratory Exam: NORMAL BREATHING PATTERN - Cardiovascular Exam Cardiovascular Exam: RRR - GI/Abdominal Exam GI & Abdominal Exam: Soft. absent: Tenderness - Rectal Exam Additional comments: small incisional wound on L buttock s/p I&D; packing changed - Neurological Exam Neurological Exam: Alert, Awake, Oriented x3 - Skin Skin Exam: Dry, Warm Assessment and Plan - Assessment and Plan (Free Text) Assessment: 31F s/p I&D of L ever-rectal abscess Plan: - cont packing changes at home - clean area with soap and water daily, ferny after BMs - clear for DC from surgical standpoint - d/w Dr. Sun Pennington, PGY-3
[2017-06-21 10:47] LABS: BASO # 0.02 K/mm3 (0.0-2.0); BASO % 0.4 % (0.0-3.0); EOS # 0.3 (0.0-0.7); EOS % 4.6 % (1.5-5.0); GRAN # 3.25 (1.4-6.5); GRAN % 59.6 % (50.0-68.0); HEMOGLOBIN 10.7 g/dL (12.0-16.0); LYMPH # 1.7 (1.2-3.4); LYMPH % 30.6 % (22.0-35.0); MEAN CORPUSCULAR HEMOGLOBIN 27.5 pg (25.0-35.0); MEAN CORPUSCULAR HGB CONC 33.1 g/dl (31.0-37.0); MEAN PLATELET VOLUME 9.5 fl (7.0-11.0); MONO # 0.3 (0.1-0.6); MONO % 4.8 % (1.0-6.0); RBC 3.89 10^6/uL (3.5-6.1); RED CELL DISTRIBUTION WIDTH 12.4 % (11.5-14.5); WHITE BLOOD COUNT 5.5 10^3/ul (4.5-11.0)
[2017-06-21 13:54] VITALS: BP 130/72; PULSE 87; TEMP 98
[2017-06-21 14:01] LABS: ALB/GLOB RATIO 1.2 (1.1-1.8); ALBUMIN 3.4 g/dL (3.0-4.8); ALT/SGPT 48 U/L (7-56); AST/SGOT 26 U/L (14-36); BLOOD UREA NITROGEN 8 mg/dL (7-21); CALCIUM 8.6 mg/dL (8.4-10.5); GFR AFRICAN-AMERICAN > 60; GFR NON-AFRICAN AMERICAN > 60
--- NOTE | 2017-06-21 16:30 | CP.PCM.PN ---
Subjective - Date & Time of Evaluation Date of Evaluation: 06/21/17 Time of Evaluation: 12:15 - Subjective Subjective: No fevers, not in distress, afebrile, much improved perirectal pain. No diarrhea. Objective - Vital Signs/Intake and Output Vital Signs (last 24 hours): Temp Pulse Resp BP Pulse Ox 97.8 F 74 20 119/60 99 06/21/17 08:22 06/21/17 08:22 06/21/17 08:22 06/21/17 08:22 06/21/17 08:22 Intake and Output: 06/21/17 06/21/17 06:59 18:59 Intake Total 230 Balance 230 - Medications Medications: Current Medications Albuterol/Ipratropium (Duoneb 3 Mg/0.5 Mg (3 Ml) Ud) 3 ml IH [id number] PRN PRN Reason: Shortness of Breath Apixaban (Eliquis) 5 mg PO BID LAXMI PRN Reason: Protocol Arformoterol Tartrate (Brovana) 15 mcg IH [id number] [facility] Last Admin: 06/21/17 07:23 Dose: 15 mcg Budesonide (Pulmicort Respules) 0.5 mg IH [id number] LAXMI Last Admin: 06/21/17 07:23 Dose: 0.5 mg Hydromorphone HCl (Dilaudid) 0.5 mg IVP Q4 PRN PRN Reason: Pain, severe (8-10) Last Admin: 06/20/17 22:46 Dose: 0.5 mg Sodium Chloride (Sodium Chloride 0.9%) 1,000 mls @ 50 mls/hr IV .Q20H [facility] Last Admin: 06/21/17 06:02 Dose: 50 mls/hr Meropenem (Merrem Iv 1 Gm Premix) 50 mls @ 100 mls/hr IVPB Q8 LAXMI PRN Reason: Protocol Last Admin: 06/21/17 05:59 Dose: 100 mls/hr Linezolid (Zyvox 600mg/300ml D5w) 600 mg in 300 mls @ 200 mls/hr IVPB Q12 LAXMI PRN Reason: Protocol Stop: 06/26/17 13:46 Last Admin: 06/21/17 08:13 Dose: 200 mls/hr Heparin Sodium/Sodium Chloride (Heparin 15986 Units/250ml 1/2 Normal Saline) 25 ,000 units in 250 mls @ 14.683 mls/hr IV .Q17H2M PRN; Protocol; 15 UNITS/KG/HR PRN Reason: ADJUST RATE PER PROTOCOL Last Titration: 06/21/17 04:47 Dose: 13 units/kg/hr, 12.725 mls/hr Ketorolac Tromethamine (Toradol) 30 mg IVP Q8 PRN PRN Reason: Pain, moderate (4-7) Last Admin: 06/21/17 08:10 Dose: 30 mg Ondansetron HCl (Zofran Inj) 4 mg IVP Q4H PRN PRN Reason: Nausea/Vomiting Last Admin: 06/21/17 08:11 Dose: 4 mg - Labs Labs: 06/20/17 06:15 06/20/17 06:15 PT 12.4 SECONDS (9.4-12.5) 06/19/17 15:30 INR 1.09 (0.93-1.08) H 06/19/17 15:30 APTT 85.2 Seconds (25.1-36.5) H 06/21/17 04:20 - Constitutional Appears: Chronically Ill - Head Exam Head Exam: NORMAL INSPECTION - Neck Exam Neck Exam: absent: Meningismus - Respiratory Exam Respiratory Exam: Decreased Breath Sounds. absent: Rales - Cardiovascular Exam Cardiovascular Exam: +S1, +S2 - GI/Abdominal Exam GI & Abdominal Exam: Soft. absent: Tenderness Assessment and Plan - Assessment and Plan (Free Text) Plan: Assessment Perirectal abscess, S/P I and D, growing E. coli SLE history of DVT S/P IVC filter placement asthma chronic anemia S/P S/P tonsillectomy Plan on Zyvox and Merrem day 3 - patient can be switched to PO Doxycycline and PO Augmentin for another 7 days, with outpatient follow up with PMD
== END 2017-06-21 16:41 | disposition home or self-care (01) | DRG 152 ==
LOC: ED 19:59 → ERH 21:46 → 5RSO 06-19 00:25
PROVIDERS: ADMIT Hospitalist; ATTEND Internal Medicine
PROC: 0D9P0ZX Drainage of Rectum, Open Approach, Diagnostic (ICD-10-PCS; principal; 2017-06-20)
DX: K61.1 Rectal abscess (principal); B37.3 Candidiasis of vulva and vagina; E86.0 Dehydration; M32.9 Systemic lupus erythematosus, unspecified; J45.909 Unspecified asthma, uncomplicated; D64.9 Anemia, unspecified; B96.20 Unspecified Escherichia coli [E. coli] as the cause of diseases classified elsewhere; R79.89 Other specified abnormal findings of blood chemistry; Z79.02 Long term (current) use of antithrombotics/antiplatelets; Z86.711 Personal history of pulmonary embolism; Z86.718 Personal history of other venous thrombosis and embolism